=== PATIENT | female | born 1980 | race Caucasian/White ===

== ENCOUNTER 2017-05-07 12:14 | Inpatient (IN) ==
[2017-05-07] MEDS ORDERED: *HR* HYDROmorphone (PF) 1 MG/ML SYRINGE IVP ONE ×2 (16:21→18:09)
[2017-05-07] MEDS ORDERED: Ondansetron 4 MG/2 ML VIAL IVP ONE (18:09)
[2017-05-07] MEDS ORDERED: Naloxone 0.4 MG/ML INJ IVP PRN (19:37)
[2017-05-07] MEDS ORDERED: Acetaminophen 325 MG TABLET PO PRN (19:37)
[2017-05-07] MEDS ORDERED: MethylPREDNISolone 40 MG/ML VIAL IVP SCH (20:00)
[2017-05-07] MEDS: *HR* Promethazine 25 MG/ML VIAL IVP PRN (20:23)
[2017-05-07] MEDS: *HR* HYDROmorphone (PF) 1 MG/ML SYRINGE IVP PRN (20:23)
--- NOTE | 2017-05-07 21:20 | Internal Med History&Physical ---
Date of Encounter: 05/07/17 Time of Encounter: 08:00 Assessment and Plan (1) Acute Crohn's disease Current visit: Yes Status: Acute Will admit the pt into Med Surg Reviewed her hospital records from [facility] Reviewed CT of Abd from 04/30/2017 showed mild diffuse colitis, and 3mm renal calculi - left side Reviewed U/S of Kidney from 05/05/17 showed 5mm non obstruction renal calculi in mid left kidney without evidence of hydronephrosis Will cont IV Steroids Solumedrol 40mg Q12hr Clear liquid diet Consulted GI for further eval No signs of infection - will hold abx for now Na: 143, K +-3.6, BUN/Cr; 9/0.49 WBC: 12.5 Supposedly pt has to f/u with surgeon Dr. Saleem too.. will consult him in AM Qualifiers: Qualified Code(s): K50.90 - Crohn's disease, unspecified, without complications (2) Intractable nausea and vomiting Current visit: Yes Status: Acute Due to abdominal pain and Left flank pain with renal calculi cont supportive care she had X ray of abdomen series - non obstructive She was given TPN at [facility].. since she does not have any bowel obstruction and she does not look very malnourished will hold on TPN for now.. started on clear liquid diet and advance as she tolerates started her on IVF Qualifiers: Qualified Code(s): R11.2 - Nausea with vomiting, unspecified (3) Renal calculus, left Current visit: Yes Status: Acute Cont IV analgesics Her urine cx - showed mixed urogenital amrit No need of abx will repeat another UA here Consulted Urology cont supportive care Internal Medicine - H&P: HPI Chief complaint: Abdominal pain, Left flank pain Admitted From: Hospital to Hospital Transfer Plans for Post Hospital Care: Home History of present illness: Ms. Dempsey is a 36 year old female with known PMH of Renal stones s/p ureter stent 15 yrs ago, Crohn's disease with frequent flare ups and treated with remicade before was admitted at [facility] with 5 days history of nausea / vomiting and abdominal pain, then severe left flank pain started 2 days prior to hospitalization. She had CT of abd done, which showed 3mm Left kidney stone, with no hydronephrosis, no pyelonephritis, also showed mild diffuse colitis. Pt was treated with IV Clindamycin and IV steroids. She was also give daily TPN since she was not able to tlerate PO intake due to intractable nausea. Pt states that due to her left flank , she is feeling more nauseated. She stated her lower abdominal pain seems to be ok now. Pt was transferred to our hospital here for further higher level of care. Pt is alert, awake and O x3, looks in moderate distress with pain. Still has nausea and vomitings. Past Med Surg Social Fam HX - Past Medical History Medical history: kidney stones, other Psychiatric history: depression - Past Surgical History Surgical History: appendectomy, cancer surgery, cholecystectomy, colectomy, ureteral stent - Social History Smoking Status: Former smoker Smokeless Tobacco Status: No Alcohol use: none Drug use: none - Family History Father Hx Family Cancer: Yes Internal Medicine - H&P: Meds Diphenoxylate/Atropine [Lomotil 2.5 mg/0.025 mg] 1 tab PO QID 02/14/16 [History] Potassium Chloride [K-Tab ER] 20 meq PO DAILY 02/14/16 [History] Promethazine [Phenergan] 25 mg PO Q6HR PRN 02/14/16 [History] Dicyclomine HCl [Bentyl] 20 mg PO QID 06/12/16 [History] 3 Allergy/AdvReac Type Severity Reaction Status Date / Time cephalexin [From Keflex] Allergy Rash Verified 03/04/17 13:01 ciprofloxacin [From Cipro] Allergy Rash Verified 03/04/17 13:01 droperidol Allergy "CLIMBING Verified 03/04/17 13:01 SHERMAN" ANXIETY TORE IV OUT WITH TORADOL infliximab [From Remicade] Allergy STOP Verified 03/04/17 13:01 BREATHING metoclopramide [From Reglan] Allergy Hives Verified 03/04/17 13:01 metronidazole [From Flagyl] Allergy Hives Verified 03/04/17 13:01 morphine Allergy IV SITE Verified 03/04/17 13:01 RED STREAK Penicillins Allergy Rash Verified 03/04/17 13:01 sulfamethoxazole Allergy Rash Verified 03/04/17 13:01 [From Bactrim] trimethoprim [From Bactrim] Allergy Rash Verified 03/04/17 13:01 haloperidol [From Haldol] AdvReac CATATONI Verified 03/04/17 13:01 ketorolac [From Toradol] AdvReac "CLIMBING Verified 03/04/17 13:01 SHERMAN" ANXIETY TORE IV OUT WITH DROPERIDOL meperidine [From Demerol] AdvReac Rash Verified 03/04/17 13:01 PPD black rubber mix AdvReac FALSE Verified 03/04/17 13:01 POSITIVE (DR NAVA ALLERGY) All Systems PM: A 10-system review of systems was performed and is negative for pertinent findings except as documented above in the HPI. Review of systems: All the systems are reviewed everything is benign except the systems and symptoms I mentioned in the history of present illness - Constitutional Vitals: Temp Pulse Resp BP Pulse Ox 98.7 F 69 16 114/68 98 05/07/17 19:55 05/07/17 19:55 05/07/17 19:55 05/07/17 19:55 05/07/17 19:55 General appearance: Present: mild distress, A&O X 3, answers questions appropriately - Head Head exam: Present: atraumatic, normal inspection - Respiratory Respiratory exam: Present: decreased breath sounds. Absent: rales, respiratory distress, rhonchi, wheezes - Cardiovascular Cardiovascular exam: Present: RRR, +S1, +S2. Absent: systolic murmur - GI/Abdominal GI/Abdominal exam: Present: hypoactive bowel sounds, soft, tenderness (lower abdomen). Absent: rebound, rigid - Extremities Exam Extremities exam: Absent: calf tenderness, pedal edema, tenderness - Back Exam Back exam: Present: CVA tenderness (L). Absent: CVA tenderness (R), paraspinal tenderness, vertebral tenderness - Neurological Exam Neurological exam: Present: alert, oriented X3 - Psychiatric Psychiatric exam: Present: normal affect, normal mood
[2017-05-07] MEDS: MethylPREDNISolone 40 MG/ML VIAL IVP SCH (21:34)
[2017-05-07] MEDS: D5% in 0.45% NACL 1,000 ML IVC SCH (21:41)
[2017-05-08] MEDS: Ondansetron ODT 4 MG TAB.RAPDIS SL PRN ×2 (00:35→09:24)
[2017-05-08] MEDS: *HR* HYDROmorphone (PF) 1 MG/ML SYRINGE IVP PRN ×9 (00:35→22:47)
[2017-05-08] MEDS: D5% in 0.45% NACL 1,000 ML IVC SCH ×3 (04:45→20:01)
[2017-05-08] MEDS: *HR* Promethazine 25 MG/ML VIAL IVP PRN ×3 (04:46→20:34)
[2017-05-08 05:24] LABS: Basophils % 0.1 %; Hematocrit 32.5 % (35.3-44.9); Hemoglobin 10.6 g/dL (11.5-15.4); Immature Granulocytes % 1.5 % (0-4); Lymphocytes # 1.4 K/mcL (0.6-4.6); Lymphocytes % 8.1 %; Mean Corpuscular HGB Conc 32.6 g/dL (31.6-35.5); Mean Corpuscular Hemoglobin 29.7 pg (28.0-33.3); Mean Platelet Volume 9.5 fL (9.4-12.4); Monocytes # 0.7 K/mcL (0.0-1.3); Monocytes % 3.9 %; Neutrophils # 15.2 K/mcL (1.6-8.9); Platelet Count 337 K/mcL (140-400); Red Blood Count 3.57 M/mcL (3.82-4.97); Segmented Neutrophils % 86.4 %
[2017-05-08 05:31] LABS: Alanine Aminotransferase 40 Units/L (0-55); Albumin/Globulin Ratio 1.3 (1.1-2.2); Alkaline Phosphatase 69 Units/L (38-126); Aspartate Amino Transferase 9 Units/L (5-34); BUN/Creatinine Ratio 18 (6-26); Bilirubin,Total 0.3 mg/dL (0.2-1.2); Blood Urea Nitrogen 11 mg/dL (7-20); Calcium 8.1 mg/dL (8.6-10.8); Carbon Dioxide 27 mEq/L (19-29); Chloride 106 mEq/L (98-109); Globulin 2.4 g/dL (2.4-3.5); Glucose 111 mg/dL (70-99); Magnesium 1.8 mg/dL (1.6-2.6); Osmolality,Calculated 290 (280-300); Phosphorous 3.9 mg/dL (2.3-4.7); Potassium 3.5 mEq/L (3.5-4.5); Sodium 140 mEq/L (136-145); Total Protein 5.4 g/dL (6.0-8.3); eGFR For African Americans > 60 (> 60); eGFR For Non-African Americans > 60 (> 60)
[2017-05-08] MEDS: Pantoprazole 40 MG VIAL IVP SCH (08:15)
[2017-05-08] MEDS: MethylPREDNISolone 40 MG/ML VIAL IVP SCH ×2 (08:16→20:02)
[2017-05-08] MEDS ORDERED: Ondansetron 4 MG/2 ML VIAL IVP PRN (10:25)
--- NOTE | 2017-05-08 10:28 | Internal Med Progress Note ---
<RickedisonAnastasiya - Last Filed: 05/08/17 13:37> Date of Encounter: 05/08/17 Time of Encounter: 10:26 - Assessment and plan (1) Acute Crohn's disease Current Visit: Yes Status: Acute Assessment and plan: Patient with acute flare of her Crohn's colitis. CT scan showing colitis and 3 mm left kidney stone which is non-obstructing with no hydronephrosis. -Continue Solu-Medrol steroids, Protonix, and anti-emetics. -GI consult-they recommend continued treatment with steroids, Protonix, and antibiotics. Qualifiers: Digestive disease complication type: unspecified complication Qualified Code(s): K50.919 - Crohn's disease, unspecified, with unspecified complications (2) Intractable nausea and vomiting Current Visit: Yes Status: Acute Assessment and plan: Continue supportive care. X-ray of abdomen shows non-obstructive renal calculus. Patient received TPN at [facility]. This was discontinued on her admission here. -Liquid diet and advance as tolerated. -IV fluids -Anti-emetics Qualifiers: Vomiting type: unspecified Qualified Code(s): R11.2 - Nausea with vomiting , unspecified (3) Renal calculus, left Current Visit: Yes Status: Acute Assessment and plan: -IV analgesia. No indication for antibiotics. -Consult to urology. - Subjective Interval history: Mrs. Haddad is a 36-year-old female past medical history of Crohn's and renal stones status post ureteral stent 15 years ago. Patient transferred here from [facility] after a 5 day stay with nausea vomiting, abdominal pain, and then development of left flank pain. She was being treated for acute Crohn's flare and a renal calculi which is non-obstructing. This morning patient appears in moderate distress. She states her pain is severe. She is holding her left flank region. She states she is having nausea, vomiting, and diarrhea which is frothy and filled with mucus. She states she is having hematuria, however denies dysuria. She denies any chest pain, shortness of breath, diaphoresis, dizziness, lightheadedness, or headache. She denies any fevers. - Constitutional Vitals: Temp Pulse Resp BP Pulse Ox 98 F 67 14 132/79 98 05/08/17 07:09 05/08/17 07:09 05/08/17 07:09 05/08/17 07:09 05/08/17 07:09 General appearance: Present: mild distress, A&O X 3, answers questions appropriately - Respiratory Respiratory exam: Present: CTAB. Absent: accessory muscle use, rales, rhonchi, wheezes - Cardiovascular Cardiovascular exam: Present: RRR, +S1, +S2. Absent: diastolic murmur, gallop, rubs, systolic murmur - GI/Abdominal GI/Abdominal exam: Present: normal bowel sounds, soft, tenderness (Right upper quadrant moderate pain extending diagonally across her abdomen through her epigastric region and into her left lower quadrant.), no peritoneal signs. Absent: distended, firm, guarding - Extremities Exam Extremities exam: Present: warm, radial pulses palpable and symmetrical. Absent : calf tenderness, cyanotic, pedal edema Internal Medicine: Result - Labs CBC & Chem 7: 05/08/17 04:59 05/08/17 04:59 Labs: Short CBC 05/08/17 Range/Units 04:59 WBC 17.6 H (4.3-11.1) K/mcL Hgb 10.6 L (11.5-15.4) g/dL Hct 32.5 L (35.3-44.9) % Plt Count 337 (140-400) K/mcL Neutrophils # 15.2 H (1.6-8.9) K/mcL BMP 05/08/17 04:59 Sodium 140 Potassium 3.5 Chloride 106 Carbon Dioxide 27 BUN 11 Creatinine 0.60 Glucose 111 H Calcium 8.1 L Liver Function 05/08/17 Range/Units 04:59 Total Bilirubin 0.3 (0.2-1.2) mg/dL AST 9 (5-34) Units/L ALT 40 (0-55) Units/L Alkaline Phosphatase 69 (38-126) Units/L Albumin 3.0 L (3.5-5.0) g/dL Consult Discharge Plan - Plan Referrals: Bj Garcia MD [Primary Care Provider] - <Emilio [facility] - Last Filed: 05/08/17 14:24> Date of Encounter: 05/08/17 - Constitutional Vitals: Temp Pulse Resp BP Pulse Ox 98.5 F 87 15 134/87 99 05/08/17 12:33 05/08/17 12:33 05/08/17 12:33 05/08/17 12:33 05/08/17 12:33 Internal Medicine: Result - Labs CBC & Chem 7: 05/08/17 04:59 05/08/17 04:59 Labs: Short CBC 05/08/17 Range/Units 04:59 WBC 17.6 H (4.3-11.1) K/mcL Hgb 10.6 L (11.5-15.4) g/dL Hct 32.5 L (35.3-44.9) % Plt Count 337 (140-400) K/mcL Neutrophils # 15.2 H (1.6-8.9) K/mcL BMP 05/08/17 04:59 Sodium 140 Potassium 3.5 Chloride 106 Carbon Dioxide 27 BUN 11 Creatinine 0.60 Glucose 111 H Calcium 8.1 L Liver Function 05/08/17 Range/Units 04:59 Total Bilirubin 0.3 (0.2-1.2) mg/dL AST 9 (5-34) Units/L ALT 40 (0-55) Units/L Alkaline Phosphatase 69 (38-126) Units/L Albumin 3.0 L (3.5-5.0) g/dL - Attending Attestation I have independently seen and examined this patient on 05/08/2017 and discussed plan of care with the patient, and the resident physician 36 F admitted from another hospital following Crohn's disease flare, L flank pain and intractable nausea and vomiting Patient continued to complain of L flank pain at referral hospital and her work up from there showed a non-obstructing stone, with no hydropnephrosis, patient' s chem is WNL. She endorsed some hematuria which has not been witnessed She continues to have nausea and vomiting, but states she was able to hold her dinner from last night down She also continues to require and request dilaudid every 2 hrs GI and Urology evaluations are pending Physical exam: VSS, Young female in no form of distress at time of review. HEENT : Unremarkable. MOist oral mucosa. Chest with Left port. CTAB. HS S1, S2 only, no m/g/r. Abdomen is soft and not tender. no CVA tenderness when patient is distracted. No pedal edema A/P #Crohns flare: Continue steroids, antiemetics, received Clindamycin from referral hospital, no clear indication for any antibiotics at this time, follow GI eval. #Leukocytosis possibly from steroids #L flank pain; Possible colic from renal stone. eval is pending, continue antiemetics and pain control No indication for TPN at this time, patient does not have bowel obstruction,if at all she has malnutrition, its mild and I believe we should attempt oral intake initially. She is high risk due to continuous use of IV opiates. Rest of details as in resident physician's documentation
[2017-05-08] MEDS ORDERED: Potassium Chloride 40 MEQ, Lidocaine 1% 2 ML in D5% in Water 500 ML IVPB ONE (10:59)
--- NOTE | 2017-05-08 13:11 | Gastroenterology Consult Note ---
<Yanet Landry - Last Filed: 05/08/17 12:56> Date of Encounter: 05/08/17 Time of Encounter: 11:00 - Assessment and plan (1) Acute Crohn's disease Current Visit: Yes Status: Acute Assessment and plan: Pt is a 36 year old female who has Crohn's disease. She has been treated with biologics in the past. She presents with acute flare. She has been started on steroids, protonix and antiemetics. Qualifiers: Qualified Code(s): K50.90 - Crohn's disease, unspecified, without complications - Time Spent With Patient Total time spent is greater than 50% in coordination of care (as documented) at patient's floor/unit and/or counseling patient: GI History of Present Illness - Data of Consult Patient: new to practice Consult date: 05/08/17 Requesting Physician: Emilio [facility] MD - Consult Narrative Reason for consult: Crohn's disease History of present illness: Ms. Dempsey is a 36 year old female who presented with abdominal pain nausea and vomiting. She has a pmhx kidney stones, depression and Chron's disease. She was recently hospitalized for nausea/vomiting/ abdominal pain for 6 days at [facility] for 6 days before being transferred here. She was treated with antibiotics, steroids, and TPN there. She reports she is on protonix and steroids prn at home. She was diagnosed with Crohns in 2003. She was on remicade for 2 years but had anaphylactic reaction. She has also been tried on humira and Cimzia which provided some relief for a short time then symptoms worsened again. She has also been on asacol and sulfasalazine with minimal relief in the past. She has been followed by Dr Doherty and Dr Saleem in the past. She had colon resection 8 years ago. She reports increased nausea and vomiting/ abdominal pain and diarrhea for the past week. Stool is watery, bile colored with streaks of blood and mucus. She has crampy abdominal pain, low grade fever and chills. CT abdomen showed 3 mm left kidney stone and colitis. Labs WBC 17.6, Hgb 10.6, albumin 3.0. Colonoscopy: 12/18 Chas EGD: 02/17 patchy gastritis duodenitis, Capsule endoscopy 02/17 incomplete (did not leave stomach) gastritis NSAIDS: denies ASA: denies Anticougulants: none Past Med Surg Social Fam HX - Past Medical History Medical history: kidney stones, other Psychiatric history: depression - Past Surgical History Surgical History: appendectomy, cancer surgery, cholecystectomy, colectomy, ureteral stent - Social History Smoking Status: Former smoker Smokeless Tobacco Status: No Alcohol use: none Drug use: none - Family History Father Hx Family Cancer: Yes Review of Systems: GI: as per [place] [facility]: fever and chills EYES: denies yellow discoloration ENT: denies pain with swallowing or difficulty swallowing CARDIO: denies chest pain, palpitations RESP: No Shortness of breath with exertion : denies change in color of urine NEURO: denies any weakness HEME: Denies any bruising MS: chronic joint pain, and back pain. DERM: denies rash or itching PSYCH: Denies history of anxiety or depression - Constitutional Vitals: Temp Pulse Resp BP Pulse Ox 98.5 F 87 15 134/87 99 05/08/17 12:33 05/08/17 12:33 05/08/17 12:33 05/08/17 12:33 05/08/17 12:33 Exam: CONSTITUTIONAL:~alert, no acute distress.~HEAD:~normocephalic.~EYES:~no jaundice.~NECK:~no obvious swelling.~HEART:~regular rate and rhythm, no murmurs. ~LUNGS:~bilateral good air entry.~ABDOMEN:~non distended, soft, tender, no masses palpable, no organomegaly, abdominal scars well healed.~RECTAL EXAM:~ Deferred.~EXTREMITIES:~no clubbing, cyanosis or edema.~SKIN:~no stigmata of chronic liver disease.~NEUROLOGIC:~no obvious focal defect.~~~~ Results - Labs CBC & Chem 7: 05/08/17 04:59 05/08/17 04:59 Labs: Last Result Calcium 8.1 mg/dL (8.6-10.8) L 05/08/17 04:59 Entire Visit Hgb 10.6 g/dL (11.5-15.4) L 05/08/17 04:59 Hct 32.5 % (35.3-44.9) L 05/08/17 04:59 Total Bilirubin 0.3 mg/dL (0.2-1.2) 05/08/17 04:59 AST 9 Units/L (5-34) 05/08/17 04:59 ALT 40 Units/L (0-55) 05/08/17 04:59 Consult Discharge Plan - Plan Referrals: Bj Garcia MD [Primary Care Provider] - 05/19/17 1:00 pm <Yamila Banegas - Last Filed: 05/08/17 20:36> Date of Encounter: 05/08/17 Time of Encounter: 17:30 - Time Spent With Patient Total time spent is greater than 50% in coordination of care (as documented) at patient's floor/unit and/or counseling patient: GI History of Present Illness - Data of Consult Requesting Physician: Emilio [facility] MD - Consult Narrative History of present illness: Ms. Dempsey is a 36 year old female - Constitutional Vitals: Temp Pulse Resp BP Pulse Ox 98.8 F 79 15 129/80 98 05/08/17 16:36 05/08/17 16:36 05/08/17 16:36 05/08/17 16:36 05/08/17 16:36 Results - Labs CBC & Chem 7: 05/08/17 04:59 05/08/17 04:59 Labs: Last Result Calcium 8.1 mg/dL (8.6-10.8) L 05/08/17 04:59 Entire Visit Hgb 10.6 g/dL (11.5-15.4) L 05/08/17 04:59 Hct 32.5 % (35.3-44.9) L 05/08/17 04:59 Total Bilirubin 0.3 mg/dL (0.2-1.2) 05/08/17 04:59 AST 9 Units/L (5-34) 05/08/17 04:59 ALT 40 Units/L (0-55) 05/08/17 04:59 - Attending Attestation I examined this patient and my medical decision-making was reviewed with the Resident Physician. I agree with the documented findings, disposition and treatment plan as described except to the extent set forth below. Pt with Hx of Crohns now with ?? flare. CT reviewed, donot seen that pt has much active disease. Does has Hx of anastmotic stricture and symptoms can be due to that but no bowel obstruction. Rec; Colon in am and if no active disease and only only aanstomotic stricture then will need resection of that and if active disease then will consider entyvio as out pt as failed out TNF biologics
[2017-05-08] MEDS ORDERED: Aminoglycoside Consult 1 EACH MC ONE (13:29)
[2017-05-08] MEDS: Ondansetron 4 MG/2 ML VIAL IVP PRN ×2 (15:59→22:46)
--- NOTE | 2017-05-08 18:48 | Urology - Consult Note ---
Date of Encounter: 05/08/17 Time of Encounter: 18:45 - Assessment and Plan (1) Pyelonephritis Current Visit: Yes Status: Acute Assessment and plan: I believe the patient has acute pyelonephritis. We will initially start gentamicin. Recommend adjustment per primary team. (2) Renal calculus, left Current Visit: Yes Status: Acute Assessment and plan: No intervention to the stone needed at this time. The stone is nonobstructing. Patient did have subsequent renal ultrasound which confirmed no hydronephrosis. Urology CN:HPI Consult date: 05/08/17 Reason for consult Urology: Other (left flank pain) Requesting physician: Serg Teran History of present illness: Lorri is a 36-year-old female with a history of Crohn's disease. Patient states that she presented to outside hospital emergency Department approximately 1 week ago with severe left-sided flank pain. She does CT scan done which was personally reviewed which showed a 5 mm left renal stone without any obstruction. Patient did have a nitrite positive urinalysis at that visit. She states that she was subsequently placed on antibiotics and her WBC count did improve on review of her records. He did slowly start to rise. She denies any fevers. She still has persistent off-and-on left-sided flank discomfort 4- 5 out of 10 sharp in nature with no radiation. Past Med Surg Social Fam HX - Past Medical History Medical history: kidney stones, other Psychiatric history: depression - Past Surgical History Surgical History: appendectomy, cancer surgery, cholecystectomy, colectomy, ureteral stent - Social History Smoking Status: Former smoker Smokeless Tobacco Status: No Alcohol use: none Drug use: none - Family History Father Hx Family Cancer: Yes Medications and Allergies Promethazine [Phenergan] 25 mg PO Q6HR PRN 02/14/16 [History] Dicyclomine HCl [Bentyl] 20 mg PO QID 06/12/16 [History] Melatonin 10 mg PO HS PRN 05/08/17 [History] Ondansetron HCl [Zofran] 4 mg PO Q8H PRN 05/08/17 [History] 3 Allergy/AdvReac Type Severity Reaction Status Date / Time cephalexin [From Keflex] Allergy Rash Verified 03/04/17 13:01 ciprofloxacin [From Cipro] Allergy Rash Verified 03/04/17 13:01 droperidol Allergy "CLIMBING Verified 03/04/17 13:01 SHERMAN" ANXIETY TORE IV OUT WITH TORADOL infliximab [From Remicade] Allergy STOP Verified 03/04/17 13:01 BREATHING metoclopramide [From Reglan] Allergy Hives Verified 03/04/17 13:01 metronidazole [From Flagyl] Allergy Hives Verified 03/04/17 13:01 morphine Allergy IV SITE Verified 03/04/17 13:01 RED STREAK Penicillins Allergy Rash Verified 03/04/17 13:01 sulfamethoxazole Allergy Rash Verified 03/04/17 13:01 [From Bactrim] trimethoprim [From Bactrim] Allergy Rash Verified 03/04/17 13:01 haloperidol [From Haldol] AdvReac CATATONI Verified 03/04/17 13:01 ketorolac [From Toradol] AdvReac "CLIMBING Verified 03/04/17 13:01 SHERMAN" ANXIETY TORE IV OUT WITH DROPERIDOL meperidine [From Demerol] AdvReac Rash Verified 03/04/17 13:01 PPD black rubber mix AdvReac FALSE Verified 03/04/17 13:01 POSITIVE (DR NAVA ALLERGY) Review of Systems - Constitutional no chills - EENT Nose, mouth and throat: no dizziness - Cardiovascular no chest pain - Respiratory no cough - Gastrointestinal abdominal pain - Musculoskeletal as per HPI, back pain - Integumentary no erythema - Neurological no confusion Exam Initial Vital Signs Temp Pulse Resp BP Pulse Ox 99.0 F 97 16 128/81 98 05/07/17 16:19 05/07/17 16:19 05/07/17 16:19 05/07/17 16:19 05/07/17 16:19 - General physical appearance Present: well developed - Eyes Present: PERRL - ENT Present: normal nares - Neck Present: no masses - Respiratory Present: normal respiratory effort - Cardiovascular Cardiovascular exam IM: RRR - Abdomen Abdomen: Present: soft - Integumentary Present: no rash - Neurologic Present: normal coordination Urology Results - Labs 05/08/17 04:59 05/08/17 04:59 Abnormal lab results WBC 17.6 K/mcL (4.3-11.1) H 05/08/17 04:59 RBC 3.57 M/mcL (3.82-4.97) L 05/08/17 04:59 Hgb 10.6 g/dL (11.5-15.4) L 05/08/17 04:59 Hct 32.5 % (35.3-44.9) L 05/08/17 04:59 Neutrophils # 15.2 K/mcL (1.6-8.9) H 05/08/17 04:59 Glucose 111 mg/dL (70-99) H 05/08/17 04:59 POC Glucose 111 (58-89) H 05/08/17 12:21 Calcium 8.1 mg/dL (8.6-10.8) L 05/08/17 04:59 Serum Total Protein 5.4 g/dL (6.0-8.3) L 05/08/17 04:59 Albumin 3.0 g/dL (3.5-5.0) L 05/08/17 04:59 Diabetes panel 05/08/17 Range/Units 04:59 Sodium 140 (136-145) mEq/L Potassium 3.5 (3.5-4.5) mEq/L Chloride 106 (98-109) mEq/L Carbon Dioxide 27 (19-29) mEq/L BUN 11 (7-20) mg/dL Creatinine 0.60 (0.57-1.11) mg/dL Glucose 111 H (70-99) mg/dL Calcium 8.1 L (8.6-10.8) mg/dL AST 9 (5-34) Units/L ALT 40 (0-55) Units/L Alkaline Phosphatase 69 (38-126) Units/L Albumin 3.0 L (3.5-5.0) g/dL Calcium panel 05/08/17 Range/Units 04:59 Calcium 8.1 L (8.6-10.8) mg/dL Phosphorus 3.9 (2.3-4.7) mg/dL Albumin 3.0 L (3.5-5.0) g/dL Pituitary panel 05/08/17 Range/Units 04:59 Sodium 140 (136-145) mEq/L Potassium 3.5 (3.5-4.5) mEq/L Chloride 106 (98-109) mEq/L Carbon Dioxide 27 (19-29) mEq/L BUN 11 (7-20) mg/dL Creatinine 0.60 (0.57-1.11) mg/dL Glucose 111 H (70-99) mg/dL Calcium 8.1 L (8.6-10.8) mg/dL Adrenal panel 05/08/17 Range/Units 04:59 Sodium 140 (136-145) mEq/L Potassium 3.5 (3.5-4.5) mEq/L Chloride 106 (98-109) mEq/L Carbon Dioxide 27 (19-29) mEq/L BUN 11 (7-20) mg/dL Creatinine 0.60 (0.57-1.11) mg/dL Glucose 111 H (70-99) mg/dL Calcium 8.1 L (8.6-10.8) mg/dL Total Bilirubin 0.3 (0.2-1.2) mg/dL AST 9 (5-34) Units/L ALT 40 (0-55) Units/L Alkaline Phosphatase 69 (38-126) Units/L Albumin 3.0 L (3.5-5.0) g/dL All other labs normal. - Imaging CT scan - abdomen: image reviewed CT scan - pelvis: image reviewed Consult Discharge Plan - Plan Referrals: Bj Garcia MD [Primary Care Provider] - 05/19/17 1:00 pm
[2017-05-08] MEDS: Gentamicin 60 MG in 0.9 % Sodium Chloride 100 ML IVPB SCH (21:37)
[2017-05-09] MEDS: *HR* HYDROmorphone (PF) 1 MG/ML SYRINGE IVP PRN ×8 (01:00→20:30)
[2017-05-09] MEDS: *HR* Promethazine 25 MG/ML VIAL IVP PRN ×3 (03:11→20:23)
[2017-05-09] MEDS: Gentamicin 60 MG in 0.9 % Sodium Chloride 100 ML IVPB SCH (05:02)
[2017-05-09] MEDS: Ondansetron 4 MG/2 ML VIAL IVP PRN ×2 (05:03→12:51)
[2017-05-09] MEDS: D5% in 0.45% NACL 1,000 ML IVC SCH ×2 (05:57→15:13)
[2017-05-09] MEDS: Pantoprazole 40 MG VIAL IVP SCH (07:57)
[2017-05-09] MEDS: MethylPREDNISolone 40 MG/ML VIAL IVP SCH (07:57)
[2017-05-09 08:52] LABS: Bilirubin,Urine Negative (Negative); Blood,Urine Small (Negative); Clarity,Urine Clear (Clear); Color,Urine Yellow (Yellow); Glucose,Urine (UA) Normal (Normal); Ketones,Urine Negative (Negative); Leukocyte Esterase,Urine Negative (Negative); Nitrite,Urine Negative (Negative); PH,Urine 6.5 pH Units (5.0-8.0); Protein,Urine Negative (Neg-Trace); Specific Gravity,Urine 1.011 (1.010-1.025); Urobilinogen,Urine Normal (Normal)
[2017-05-09 08:55] LABS: Bacteria,Urine None Seen per hpf (None-Few); Hyaline Casts,Urine None Seen per lpf (None-Few); RBC,Urine 0-3 per hpf (0-3); Squamous Epithelial Cell,Urine Many per lpf (None-Few); WBC,Urine 0-3 per hpf (0-3)
[2017-05-09 09:46] LABS: Basophils % 0.1 %; Eosinophils % 0.1 %; Hematocrit 34.6 % (35.3-44.9); Hemoglobin 11.3 g/dL (11.5-15.4); Immature Granulocytes % 1.3 % (0-4); Immature Platelets 5.6 % (1.1-6.1); Lymphocytes # 1.8 K/mcL (0.6-4.6); Lymphocytes % 9.7 %; Mean Corpuscular HGB Conc 32.7 g/dL (31.6-35.5); Mean Corpuscular Volume 91.8 fL (83.0-100.0); Mean Platelet Volume 10.3 fL (9.4-12.4); Monocytes # 0.8 K/mcL (0.0-1.3); Monocytes % 4.4 %; Neutrophils # 15.9 K/mcL (1.6-8.9); Platelet Count 317 K/mcL (140-400); Red Blood Count 3.77 M/mcL (3.82-4.97); Red Cell Distribution Width 14.4 % (11.5-14.5); Segmented Neutrophils % 84.4 %
[2017-05-09 10:02] LABS: Alanine Aminotransferase 36 Units/L (0-55); Albumin 3.1 g/dL (3.5-5.0); Albumin/Globulin Ratio 1.2 (1.1-2.2); Alkaline Phosphatase 68 Units/L (38-126); Aspartate Amino Transferase 10 Units/L (5-34); BUN/Creatinine Ratio 12 (6-26); Bilirubin,Total 0.5 mg/dL (0.2-1.2); Blood Urea Nitrogen 8 mg/dL (7-20); Calcium 8.5 mg/dL (8.6-10.8); Carbon Dioxide 20 mEq/L (19-29); Chloride 109 mEq/L (98-109); Globulin 2.6 g/dL (2.4-3.5); Glucose 95 mg/dL (70-99); Osmolality,Calculated 290 (280-300); Sodium 141 mEq/L (136-145); Total Protein 5.7 g/dL (6.0-8.3); eGFR For African Americans > 60 (> 60); eGFR For Non-African Americans > 60 (> 60)
--- NOTE | 2017-05-09 10:23 | Internal Med Progress Note ---
<RicksaleemAnastasiya duron - Last Filed: 05/09/17 14:07> Date of Encounter: 05/09/17 Time of Encounter: 10:23 - Assessment and plan (1) Pyelonephritis Current Visit: Yes Status: Acute Assessment and plan: Patient with left-sided flank pain. Per urology they believe the patient has acute pyelonephritis as she had nitrates in her urine at [facility]. -Follow-up retroperitoneal ultrasound to rule out pyelonephritis. -Patient received 2 doses of gentamicin. -Patient's urinalysis today shows no evidence of bladder cystitis. We have discontinued the gentamicin. Upon extensive review of patient's paper medical chart from [facility], patient was being treated with clindamycin for a UTI. Patient had 5 days total course of antibiotics including the gentamicin she received here. The risks of nephrotoxicity and ototoxicity from gentamicin outweigh the potential benefits. (2) Acute Crohn's disease Current Visit: Yes Status: Acute Assessment and plan: Patient with acute flare of her Crohn's colitis. CT scan showing colitis and 3 mm left kidney stone which is non-obstructing with no hydronephrosis. -Continue Solu-Medrol steroids, Protonix, and anti-emetics per GI medications. -Patient scheduled for colonoscopy today. Qualifiers: Digestive disease complication type: unspecified complication Qualified Code(s): K50.919 - Crohn's disease, unspecified, with unspecified complications (3) Intractable nausea and vomiting Current Visit: Yes Status: Acute Assessment and plan: Continue supportive care. X-ray of abdomen shows non-obstructive renal calculus. Patient received TPN at [facility]. This was discontinued on her admission here. -Liquid diet and advance as tolerated. -IV fluids -Anti-emetics Qualifiers: Vomiting type: unspecified Qualified Code(s): R11.2 - Nausea with vomiting , unspecified (4) Renal calculus, left Current Visit: Yes Status: Acute Assessment and plan: -IV analgesia. No indication for antibiotics. -Nonobstructing with no hydronephrosis. -No interventions indicated at this time. - Subjective Interval history: Mrs. Haddad is a 36-year-old female past medical history of Crohn's and renal stones status post ureteral stent 15 years ago. Patient transferred here from [facility] after a 5 day stay with nausea vomiting, abdominal pain, and then development of left flank pain. She was being treated for acute Crohn's flare and a renal calculi which is non-obstructing. Mr. Haddad is resting comfortably this morning. She states she feels better from yesterday. She does still complain of some left sided flank pain. She is also having diffuse abdominal pain, as well as nausea and vomiting. She states she is having nausea, vomiting, and diarrhea which is frothy and filled with mucus. She states she is having hematuria, however denies dysuria. She denies any chest pain, shortness of breath, diaphoresis, dizziness, lightheadedness, or headache. She denies any fevers. - Constitutional Vitals: Temp Pulse Resp BP Pulse Ox 97.8 F 64 14 116/73 97 05/09/17 06:42 05/09/17 06:42 05/09/17 06:42 05/09/17 06:42 05/09/17 06:42 General appearance: Present: A&O X 3, pleasant, answers questions appropriately - Respiratory Respiratory exam: Present: CTAB. Absent: accessory muscle use, rales, rhonchi, wheezes - Cardiovascular Cardiovascular exam: Present: RRR, +S1, +S2. Absent: diastolic murmur, gallop, rubs, systolic murmur Additional comments: Patient with a port. - GI/Abdominal GI/Abdominal exam: Present: normal bowel sounds, soft, tenderness (Diffusely mild tenderness to palpation), no peritoneal signs. Absent: distended Additional comments: No left-sided or right-sided CVA tenderness. - Extremities Exam Extremities exam: Present: warm, radial pulses palpable and symmetrical. Absent : calf tenderness, cyanotic, pedal edema Internal Medicine: Result - Labs CBC & Chem 7: 05/09/17 09:35 05/09/17 09:35 Labs: Urine 05/09/17 Range/Units 08:20 Urine Color Yellow (Yellow) Urine Clarity Clear (Clear) Urine pH 6.5 (5.0-8.0) pH Units Ur Specific [place] 1.011 (1.010-1.025) Urine Protein Negative (Neg-Trace) mg/dL Urine Glucose (UA) Normal (Normal) mg/dL Consult Discharge Plan - Plan Referrals: Bj Garcia MD [Primary Care Provider] - 05/19/17 1:00 pm <Emilio Peoples - Last Filed: 05/09/17 15:15> Date of Encounter: 05/09/17 - Constitutional Vitals: Temp Pulse Resp BP Pulse Ox 98.9 F 68 16 139/84 99 05/09/17 11:28 05/09/17 12:06 05/09/17 12:06 05/09/17 12:06 05/09/17 12:06 Internal Medicine: Result - Labs CBC & Chem 7: 05/09/17 09:35 05/09/17 09:35 Labs: Short CBC 05/09/17 Range/Units 09:35 WBC 18.8 H (4.3-11.1) K/mcL Hgb 11.3 L (11.5-15.4) g/dL Hct 34.6 L (35.3-44.9) % Plt Count 317 (140-400) K/mcL Neutrophils # 15.9 H (1.6-8.9) K/mcL BMP 05/09/17 09:35 Sodium 141 Potassium 4.0 Chloride 109 Carbon Dioxide 20 BUN 8 Creatinine 0.66 Glucose 95 Calcium 8.5 L Liver Function 05/09/17 Range/Units 09:35 Total Bilirubin 0.5 (0.2-1.2) mg/dL AST 10 (5-34) Units/L ALT 36 (0-55) Units/L Alkaline Phosphatase 68 (38-126) Units/L Albumin 3.1 L (3.5-5.0) g/dL Urine 05/09/17 Range/Units 08:20 Urine Color Yellow (Yellow) Urine Clarity Clear (Clear) Urine pH 6.5 (5.0-8.0) pH Units Ur Specific [place] 1.011 (1.010-1.025) Urine Protein Negative (Neg-Trace) mg/dL Urine Glucose (UA) Normal (Normal) mg/dL - Attending Attestation I have independently seen and examined this patient on 05/09/2017 and discussed plan of care with the patient, and the resident physician 36 F admitted from another hospital following Crohn's disease flare, L flank pain and intractable nausea and vomiting. Review of paper chart from referral hospital shows initial UA on 04/30 with Nitrites and LE, she received clindamycin for 5 days. She also has been on steroids since 04/30. She has been seen by the urologist who started her on gentamicin on suspicion of pyelonephritis, due to presence of UTI at referal hospital and L flank pain. Patient's urine culture at referral hospital was mixed amrit without any growth. A repeat UA done this morning is clean and did not require culture This morning, she does look significantly improved and denies any new complains , she had one episode of vomiting sometime in the manager personal. Physical exam: VSS, Young female in no form of distress at time of review. HEENT : Unremarkable. MOist oral mucosa. Chest with Left port. CTAB. HS S1, S2 only, no m/g/r. Abdomen is soft and not tender. no CVA tenderness when patient is distracted. No pedal edema Labs and Imaging reviewed: Leukocytosis, HB is stable , Chem is noral, hyperglycemia possibly from steroids, corrected calcium is normal, prealbumin is 31.0, albumin is 3.1. UA is clean. CRP and ESR are normal. A/P #Crohns flare: Resolving, patient's CRP and ESR are WNL. 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 Continue emetics, advance diet as tolerated. #Leukocytosis possibly from steroids, continue to monitor #L flank pain; Possible colic from renal stone. eval is appreciated, continue antiemetics and pain control #Malnutrition: Continue supplements, no indication for TPN at this time, Pre- albumin is normal and albumin is only sightly low, patient does not look malnourished. #Suspected Pyelonephritis: Unlikely. Patient did have hematuria in her initial UA, as well as positive nitrates and LE, she has an indwelling renal stone and nause/vomiting. Her Urine culture had no significant growth, repeat UA this morning is clean. The risks of toxicity of gentamicin outweigh the benefits at this time, patient is not septic, and is clinically improving. D/C gentamicin and repeat renal USS. Also, her CRP and ESR is normal, it is unlikely she has an active infection #Suspected drug seeking behaviour: Patient reports having continuous diarrhea that has not been witnessed by any staff since arrival, she also typically is able to consume most of her tray but always has a liquid filled vomitus bag and does not want any po opiates. We will begin to wean her off IV dilaudid. She is high risk due to continuous use of IV opiates. Rest of details as in resident physician's documentation
[2017-05-09] MEDS ORDERED: *HR* Midazolam HCl 5 MG/5 ML VIAL IVP ONE (10:48)
[2017-05-09] MEDS ORDERED: *HR* FentaNYL (PF) 100 MCG/2 ML VIAL ONE (10:49)
[2017-05-09] MEDS ORDERED: Simethicone 40 MG/0.6 ML MLS IR ONE (11:22)
--- NOTE | 2017-05-09 11:23 | Pre-Sedation Evaluation ---
Pre-sedation evaluation - Pre-sedation checklist Recent Vitals: Last Vital Signs Temp 99.0 F 05/09/17 10:45 Pulse 89 05/09/17 10:45 Resp 16 05/09/17 10:45 BP 127/82 05/09/17 10:45 Pulse Ox 98 05/09/17 10:45 ASA Classification *see protocol: CLASS III-Severe systemic disease Plan of Care: Pt appropriate candidate for procedure/moderate/conscious sedation , Risks/benefits of procedure/sedation discussed w/ patient/family
[2017-05-09] MEDS ORDERED: *HR* Promethazine 25 MG/ML VIAL ONE (11:33)
[2017-05-09] MEDS: *HR* FentaNYL (PF) 100 MCG/2 ML VIAL IVP PRN ×3 (11:35→11:42)
[2017-05-09] MEDS: *HR* Midazolam HCl 5 MG/5 ML VIAL IVP PRN ×3 (11:36→11:43)
[2017-05-09] MEDS ORDERED: *HR* Promethazine 25 MG/ML VIAL IVP ONE (11:39)
[2017-05-09 14:51] LABS: C-Reactive Protein < 1 mg/L (Less than 5)
[2017-05-09] MEDS ORDERED: *HR* HYDROmorphone (PF) 1 MG/ML SYRINGE IVP SCH (16:00)
[2017-05-09] MEDS: *HR* HYDROcodone/Acet 5/325 mg TABLET PO PRN (17:11)
[2017-05-10] MEDS: *HR* HYDROmorphone (PF) 1 MG/ML SYRINGE IVP PRN ×2 (01:42→06:14)
[2017-05-10] MEDS: Ondansetron 4 MG/2 ML VIAL IVP PRN ×2 (01:44→08:01)
[2017-05-10] MEDS: D5% in 0.45% NACL 1,000 ML IVC SCH (02:36)
[2017-05-10] MEDS: *HR* Promethazine 25 MG/ML VIAL IVP PRN ×2 (03:10→10:24)
[2017-05-10] MEDS: *HR* HYDROcodone/Acet 5/325 mg TABLET PO PRN ×3 (03:11→12:24)
[2017-05-10 04:11] LABS: Basophils % 0.1 %; Eosinophils % 0.3 %; Hematocrit 32.4 % (35.3-44.9); Hemoglobin 10.3 g/dL (11.5-15.4); Immature Granulocytes % 0.8 % (0-4); Lymphocytes # 3.5 K/mcL (0.6-4.6); Lymphocytes % 24.4 %; Mean Corpuscular HGB Conc 31.8 g/dL (31.6-35.5); Mean Corpuscular Hemoglobin 29.4 pg (28.0-33.3); Mean Corpuscular Volume 92.6 fL (83.0-100.0); Mean Platelet Volume 9.9 fL (9.4-12.4); Monocytes % 6.7 %; Neutrophils # 9.8 K/mcL (1.6-8.9); Platelet Count 274 K/mcL (140-400); Red Cell Distribution Width 14.4 % (11.5-14.5); Segmented Neutrophils % 67.7 %
[2017-05-10 04:44] LABS: Carbon Dioxide 25 mEq/L (19-29); Chloride 109 mEq/L (98-109); Glucose 91 mg/dL (70-99); Osmolality,Calculated 287 (280-300); Potassium 3.3 mEq/L (3.5-4.5); Sodium 140 mEq/L (136-145); eGFR For African Americans > 60 (> 60); eGFR For Non-African Americans > 60 (> 60)
[2017-05-10 05:34] LABS: BUN/Creatinine Ratio 8 (6-26)
[2017-05-10 05:35] LABS: Blood Urea Nitrogen 5 mg/dL (7-20)
[2017-05-10 07:36] VITALS: BP 143/82
[2017-05-10] MEDS: Pantoprazole 40 MG VIAL IVP SCH (08:01)
[2017-05-10] MEDS ORDERED: *HR* HYDROmorphone (PF) 1 MG/ML SYRINGE IVP PRN (08:24)
[2017-05-10] MEDS ORDERED: predniSONE 20 MG TABLET PO SCH (09:00)
--- NOTE | 2017-05-10 11:09 | Discharge Summary ---
<Anastasiya Hunt H - Last Filed: 05/10/17 12:19> Date of Encounter: 05/10/17 Time of Encounter: 11:04 - Discharge Diagnosis (1) Pyelonephritis Priority: Secondary Status: Ruled-out (2) Acute Crohn's disease Priority: Secondary Status: Ruled-out Qualifiers: Digestive disease complication type: unspecified complication Qualified Code(s): K50.919 - Crohn's disease, unspecified, with unspecified complications (3) Intractable nausea and vomiting Priority: Secondary Status: Acute Qualifiers: Vomiting type: unspecified Qualified Code(s): R11.2 - Nausea with vomiting , unspecified (4) Renal calculus, left Priority: Primary Status: Acute - Discharge Medications Prescriptions: Ondansetron ODT [Zofran ODT] 4 mg SL Q4HR PRN #30 tab.rapdis PRN Reason: Nausea OxyCODONE/APAP 5/325 [Percocet 5/325 MG] 1 each PO Q4HR PRN #12 tablet PRN Reason: Pain predniSONE [PredniSONE] See Taper PO DAILY #12 tablet Home Medications: Promethazine [Phenergan] 25 mg PO Q6HR PRN 02/14/16 [History] Dicyclomine HCl [Bentyl] 20 mg PO QID 06/12/16 [History] Melatonin 10 mg PO HS PRN 05/08/17 [History] Ondansetron HCl [Zofran] 4 mg PO Q8H PRN 05/08/17 [History] Ondansetron ODT [Zofran ODT] 4 mg SL Q4HR PRN #30 tab.rapdis 05/10/17 [Rx] OxyCODONE/APAP 5/325 [Percocet 5/325 MG] 1 each PO Q4HR PRN #12 tablet 05/10/17 [Rx] predniSONE [PredniSONE] See Taper PO DAILY #12 tablet 05/10/17 [Rx] Allergies/Adverse Reactions: 3 Allergy/AdvReac Type Severity Reaction Status Date / Time cephalexin [From Keflex] Allergy Rash Verified 03/04/17 13:01 ciprofloxacin [From Cipro] Allergy Rash Verified 03/04/17 13:01 droperidol Allergy "CLIMBING Verified 03/04/17 13:01 SHERMAN" ANXIETY TORE IV OUT WITH TORADOL infliximab [From Remicade] Allergy STOP Verified 03/04/17 13:01 BREATHING metoclopramide [From Reglan] Allergy Hives Verified 03/04/17 13:01 metronidazole [From Flagyl] Allergy Hives Verified 03/04/17 13:01 morphine Allergy IV SITE Verified 03/04/17 13:01 RED STREAK Penicillins Allergy Rash Verified 03/04/17 13:01 sulfamethoxazole Allergy Rash Verified 03/04/17 13:01 [From Bactrim] trimethoprim [From Bactrim] Allergy Rash Verified 03/04/17 13:01 haloperidol [From Haldol] AdvReac CATATONI Verified 03/04/17 13:01 ketorolac [From Toradol] AdvReac "CLIMBING Verified 03/04/17 13:01 SHERMAN" ANXIETY TORE IV OUT WITH DROPERIDOL meperidine [From Demerol] AdvReac Rash Verified 03/04/17 13:01 PPD black rubber mix AdvReac FALSE Verified 03/04/17 13:01 POSITIVE (DR NAVA ALLERGY) Procedures/tests Complete & Pending: Procedures Performed prior 72 hours Category Date Time Status Retroperitoneal Ultrasound - Complete [US Exams 05/09/17 18:00 Draft retroperitoneal comp] [US] Stat Date of admission: 05/07/17 15:29 Primary care physician: Bj Garcia MD Consults: 05/07/17 20:56 Consult to Urology [CONS] Routine Consulting Provider: U[facility] [place] Reason for Consult: Left renal stone Call Completed: Yes 05/07/17 21:01 Consult to Gastroenterology [CONS] Routine Consulting Provider: Gastroenterology [place] Reason for Consult: Acute crohn's flare up Call Completed: Yes - Patient Status Disposition: Home, Self-Care Condition: Good Functional capacity at discharge: independent ambulation Overall status at discharge: patient is progressing back to baseline - Discharge Instructions Instructions: Kidney Stones (DC) Follow Up With: Bj Garcia MD [Primary Care Provider] - 05/19/17 1:00 pm William Rose MD [Partnered Physician] - Yamila Banegas MD [Partnered Physician] - Additional Instructions: Please follow-up with your primary care provider in the next 1-2 weeks. Please follow up with urology with the information provided above for management of your kidney stone. They will be able to better manage this on an outpatient basis. Also please follow-up with Dr. Valverde regarding the results of your colonoscopy as well as your management of Crohn's enterocolitis. - Diet and Activity Activity: increase activity as tolerated Diet: advance to your usual diet Hospital course: Ms. Dempsey is a 36 year old female with past medical history of renal stones status post ureteral stent 15 years ago, Crohn's disease with frequent flareups and past treatment with Remicade before being discontinued secondary to allergic reaction, and depression. Ms. Haddad presented to the emergency department after leaving [facility] after 5 days. She presented with nausea, vomiting, diarrhea, and pain with severe left-sided flank pain. Patient had a CT of her abdomen which showed a 3 mm left kidney stone with no hydronephrosis, no pyelonephritis, and some mild diffuse colitis. Patient was treated with IV clindamycin and IV steroids. She is also given TPN and she was unable to tolerate by mouth intake. Patient was transferred to our hospital for further evaluation and care. GI was consult and recommended steroids, Protonix, anti-emetics, and discontinuation of TPN. Patients antibiotics were discontinued. Patient was scheduled for colonoscopy by GI. Colonoscopy appeared normal. Biopsies were taken which patient needs to follow- up. There was evidence of a right hemicolectomy and severe stenosis at the ileocolonic anastomoses. This was dilated. Urology was consulted and began treatment with gentamicin for suspected pyelonephritis. Patient had a renal retroperitoneal ultrasound which showed no abnormalities of the kidneys, ureters , or bladder. We discontinued the gentamicin after these results coupled with a clean urinalysis. Urinalysis from [facility] showed infection, and patient received a total of 5 days of antibiotic coverage for this. Patient was treated with IV pain medication, antiemetics, and fluids. As patient's workup was largely within normal limits, we began to titrate her off the IV pain medications, at which time she requested to be discharged home from the hospital. As we found patient to be in no active distress and were unable to find anything acutely wrong on workup, we decided to discharge her home after tolerating a regular diet. Patient expressed understanding of the plan and all questions were answered appropriately. We discharged the patient home with instructions to follow-up with GI regarding her colonic biopsy as well as urology for follow-up outpatient management of her kidney stone. Of note, [facility]AR[facility] report shows many different prescribers for narcotic pain medication. Her last prescription was in April. Patient was offered the flu shot. - Time Spent with Patient Total time spent providing and/or coordinating discharge services: Greater than 30 minutes (40 minutes) - Constitutional Vitals: Temp Pulse Resp BP Pulse Ox 97.9 F 64 18 143/82 99 05/10/17 07:34 05/10/17 07:34 05/10/17 07:34 05/10/17 07:34 05/10/17 07:34 General appearance: Present: A&O X 3, pleasant, answers questions appropriately - Respiratory Respiratory exam: Present: CTAB. Absent: accessory muscle use, rales, rhonchi, wheezes - Cardiovascular Cardiovascular exam: Present: RRR, +S1, +S2. Absent: diastolic murmur, gallop, rubs, systolic murmur Additional comments: Port in place. - GI/Abdominal GI/Abdominal exam: Present: normal bowel sounds, soft, no peritoneal signs. Absent: distended, tenderness - Extremities Exam Extremities exam: Present: warm, radial pulses palpable and symmetrical. Absent : calf tenderness, cyanotic, pedal edema <Emilio Peoples - Last Filed: 05/10/17 14:19> Date of Encounter: 05/10/17 Procedures/tests Complete & Pending: Procedures Performed prior 72 hours Category Date Time Status Retroperitoneal Ultrasound - Complete [US Exams 05/09/17 18:00 Draft retroperitoneal comp] [US] Stat Date of admission: 05/07/17 15:29 Primary care physician: Bj Garcia MD Consults: 05/07/17 20:56 Consult to Urology [CONS] Routine Consulting Provider: Urology [place] Reason for Consult: Left renal stone Call Completed: Yes 05/07/17 21:01 Consult to Gastroenterology [CONS] Routine Consulting Provider: Gastroenterology [place] Reason for Consult: Acute crohn's flare up Call Completed: Yes Hospital course: Ms. Dempsey is a 36 year old female - Time Spent with Patient Total time spent providing and/or coordinating discharge services: - Constitutional Vitals: Temp Pulse Resp BP Pulse Ox 97.9 F 64 18 143/82 99 05/10/17 07:34 05/10/17 07:34 05/10/17 07:34 05/10/17 07:34 05/10/17 07:34 - Attending Attestation I have independently seen and examined this patient on 05/10/2017 and discussed plan of care with the patient, and the resident physician 36 F admitted from another hospital following Crohn's disease flare, L flank pain and intractable nausea and vomiting. Review of paper chart from referral hospital shows initial UA on 04/30 with Nitrites and LE, she received clindamycin for 5 days. She also has been on steroids since 04/30. She was seen by the urologist 05/09/17 who started her on gentamicin on suspicion of pyelonephritis, due to presence of UTI at [facility] hospital and L flank pain. Patient's urine culture at referral hospital was mixed amrit without any growth. A repeat UA done this morning is clean and did not require culture. Renal USS is normal save for non-obstructing stone This morning, she does look significantly improved and is tolerating orally She denies new complains She actually asked to be discharged when informed of the plan to taper off her dilaudid. She states she has enough support at home and will like to go her son' s homecoming. She had reported some diarrhea earlier but stated it is at her baseline She was given a regular diet for lunch and tolerated it without any nausea or vomiting Physical exam: Unremarkable Labs and Imaging reviewed: Leukocytosis improving, HB is stable , Chem is normal , hyperglycemia possibly from steroids, corrected calcium is normal, prealbumin is 31.0, albumin is 3.1. UA is clean. CRP and ESR are normal. Renal USS noted. Colonoscopy noted Stable for discharge home on prednisone taper, percocet ([facility]ARSS shows multiple prescribers for tramadol and opiates, last prescription was 03/2017. for 10 pills by her PCP. ), SL ONdansetron Follow up with /GI/PCP Verbalized and repeated plan of care Rest of details as in resident physician's documentation
== END 2017-05-10 13:30 | disposition home or self-care (01) | DRG 247 ==
LOC: 3ANU 15:29
PROVIDERS: ADMIT Family Medicine; ATTEND Internal Medicine
PROC: ENDOCBD (2017-05-09 16:15)

== ENCOUNTER 2017-10-06 16:58 | Observation (INO) ==
[2017-10-06] MEDS ORDERED: Naloxone 0.4 MG/ML INJ IVP PRN (20:48)
[2017-10-06] MEDS ORDERED: Acetaminophen 325 MG TABLET PO PRN (20:48)
[2017-10-06] MEDS ORDERED: *HR* HYDROmorphone 2 MG/ML SYRINGE IVP PRN (20:52)
[2017-10-06] MEDS: 0.9 % Sodium Chloride 1,000 ML IVC SCH (21:23)
[2017-10-06] MEDS: Meropenem 1,000 MG in Water for inj. (sterile) 20 ML 10 ML IVP SCH (21:24)
[2017-10-06] MEDS: OXYCODONE Oral CONC 10 MG/0.5 ML ORAL.SYG SL PRN (21:25)
[2017-10-06] MEDS: Ondansetron 4 MG/2 ML VIAL IVP PRN (21:26)
--- NOTE | 2017-10-06 22:03 | Internal Med History&Physical ---
Date of Encounter: 10/06/17 Time of Encounter: 20:00 Assessment and Plan (1) Exacerbation of Crohn's disease Current visit: Yes Status: Acute Patient has acute exacerbation of chronic disease. Patient has similar problem before. - We will place patient on nothing by mouth, IV fluid - IV meropenem. Patient has multiple antibiotic allergy, which limited the antibiotic choice. - Solu Medrol 60 mg IV every 8 hours for Crohn's flare - Symptomatic treatment for abdominal pain, nausea. - Consult GI in a.m. Qualifiers: Digestive disease complication type: without complication Qualified Code(s) : K50.90 - Crohn's disease, unspecified, without complications (2) DVT prophylaxis Current visit: Yes Status: Acute Patient is young and ambulating. Low risk for DVT. Will hold anticoagulation Internal Medicine - H&P: HPI Chief complaint: Abdominal pain Admitted From: Intrahospital Transfer Plans for Post Hospital Care: Home History of present illness: Ms. Dempsey is a 36 year old female with history of chronic disease, previous C. difficile colitis, presented to [facility] for abdominal pain, nausea, vomiting, and bloody diarrhea. Patient also has low grade fever with temperature 99.9. Patient has elevated WBC to 19 K. In [facility], supine and upright abdominal x-ray has been done, result is unremarkable. C. difficile test negative. Patient was treated with Crohn's disease flare with steroid, antibiotic, and pain medications. Patient was transferred to our hospital because she follow our GI doctor Dr. Banegas. Past Med Surg Social Fam HX - Past Medical History Medical history: kidney stones, other Psychiatric history: depression - Past Surgical History Surgical History: appendectomy, cholecystectomy, colectomy, ureteral stent, other (Tubal ligation) - Social History Smoking Status: Former smoker Smokeless Tobacco Status: No Alcohol use: none Drug use: none - Family History Father Living Status: Hx Family Cardiac Disorders: Yes (afib) Hx Family Respiratory Disorders: No Hx Family Cancer: Yes (prostate) Hx Family GI Disorders: Yes (unknown) Hx Family Genitourinary Disorders: Yes (prostate, ronald) Hx Family Endocrine Disorder: No Hx Family Musculoskeletal Disorders: No Hx Family Neuromuscular Disorders: No Hx Family Neurologic Disorders: Yes (bipolar, a/d) Hx Family HEENT Disorders: No Hx Family Autoimmune Disorders: No Hx Family Reproductive Disorders: No Hx Family Psychosocial Disorders: No Hx Family Medical Disorders: No Mother Living Status: Still Living Hx Family Cardiac Disorders: No Hx Family Respiratory Disorders: No Hx Family Cancer: No Hx Family GI Disorders: No Hx Family Genitourinary Disorders: No Hx Family Endocrine Disorder: No Hx Family Musculoskeletal Disorders: No Hx Family Neuromuscular Disorders: No Hx Family Neurologic Disorders: No Hx Family HEENT Disorders: No Hx Family Autoimmune Disorders: No Hx Family Reproductive Disorders: No Hx Family Psychosocial Disorders: No Hx Family Medical Disorders: No Internal Medicine - H&P: Meds Dicyclomine HCl [Bentyl] 20 mg PO Q4H PRN 06/12/16 [History] Pantoprazole Sodium [Protonix] 40 mg PO DAILY 10/06/17 [History] 3 Allergy/AdvReac Type Severity Reaction Status Date / Time cephalexin [From Keflex] Allergy Rash Verified 03/04/17 13:01 ciprofloxacin [From Cipro] Allergy Rash Verified 03/04/17 13:01 droperidol Allergy "CLIMBING Verified 03/04/17 13:01 SHERMAN" ANXIETY TORE IV OUT WITH TORADOL infliximab [From Remicade] Allergy STOP Verified 03/04/17 13:01 BREATHING metoclopramide [From Reglan] Allergy Hives Verified 03/04/17 13:01 metronidazole [From Flagyl] Allergy Hives Verified 03/04/17 13:01 morphine Allergy IV SITE Verified 03/04/17 13:01 RED STREAK Penicillins Allergy Rash Verified 03/04/17 13:01 sulfamethoxazole Allergy Rash Verified 03/04/17 13:01 [From Bactrim] trimethoprim [From Bactrim] Allergy Rash Verified 03/04/17 13:01 haloperidol [From Haldol] AdvReac CATATONI Verified 03/04/17 13:01 ketorolac [From Toradol] AdvReac "CLIMBING Verified 03/04/17 13:01 SHERMAN" ANXIETY TORE IV OUT WITH DROPERIDOL meperidine [From Demerol] AdvReac Rash Verified 03/04/17 13:01 PPD black rubber mix AdvReac FALSE Verified 03/04/17 13:01 POSITIVE (DR NAVA ALLERGY) All Systems PM: A 10-system review of systems was performed and is negative for pertinent findings except as documented above in the HPI. - Constitutional Vitals: Temp Pulse Resp BP Pulse Ox 99.9 F H 99 16 124/65 106 10/06/17 19:22 10/06/17 19:22 10/06/17 19:22 10/06/17 19:22 10/06/17 19:22 General appearance: Present: mild distress, A&O X 3, answers questions appropriately - Head Head exam: Present: atraumatic, normocephalic - Eye Eye exam: Present: PERRL, conjuntiva pink, sclera anicteric Pupils: Present: PERRL - Neck Neck exam general surgery: Present: supple, trachea midline. Absent: lymphadenopathy - Respiratory Respiratory exam: Present: CTAB. Absent: accessory muscle use, rales, rhonchi, wheezes - Cardiovascular Cardiovascular exam: Present: RRR, +S1, +S2. Absent: diastolic murmur, gallop, rubs, systolic murmur - GI/Abdominal GI/Abdominal exam: Present: hyperactive bowel sounds, normal bowel sounds, soft , tenderness (severe tenderness in 4Q, mainly RLQ, with guarding), no peritoneal signs. Absent: distended - Extremities Exam Extremities exam: Present: warm, radial pulses palpable and symmetrical. Absent : calf tenderness, cyanotic, pedal edema - Neurological Exam Neurological exam: Present: CN II-XII intact, oriented X3, no focal deficits. Absent: pronater drift, facial droop, speech deficit - Skin Skin exam: Present: dry, intact
[2017-10-07] MEDS: OXYCODONE Oral CONC 10 MG/0.5 ML ORAL.SYG SL PRN ×8 (00:41→22:24)
[2017-10-07] MEDS: methylPREDNISolone 125 MG/2 ML VIAL IVP SCH ×2 (00:41→08:07)
[2017-10-07] MEDS: *HR* Promethazine 25 MG/ML VIAL IVP PRN ×4 (00:42→22:24)
[2017-10-07] MEDS: Meropenem 1,000 MG in Water for inj. (sterile) 20 ML 10 ML IVP SCH ×3 (04:04→21:27)
[2017-10-07] MEDS: Ondansetron 4 MG/2 ML VIAL IVP PRN ×2 (04:04→10:17)
[2017-10-07] MEDS: Pantoprazole 40 MG VIAL IVP SCH ×2 (05:21→18:21)
[2017-10-07 06:03] LABS: Basophils % 0.1 %; Hematocrit 33.2 % (35.3-44.9); Hemoglobin 10.5 g/dL (11.5-15.4); Immature Granulocytes % 0.8 % (0-4); Lymphocytes % 6.9 %; Mean Corpuscular HGB Conc 31.6 g/dL (31.6-35.5); Mean Corpuscular Hemoglobin 28.8 pg (28.0-33.3); Mean Corpuscular Volume 91.2 fL (83.0-100.0); Monocytes # 0.3 K/mcL (0.0-1.3); Monocytes % 2.1 %; Neutrophils # 13.4 K/mcL (1.6-8.9); Platelet Count 292 K/mcL (140-400); Red Blood Count 3.64 M/mcL (3.82-4.97); Red Cell Distribution Width 15.9 % (11.5-14.5); Segmented Neutrophils % 90.1 %
[2017-10-07 06:13] LABS: BUN/Creatinine Ratio 15 (6-26); Blood Urea Nitrogen 11 mg/dL (6-20); Calcium 8.5 mg/dL (8.6-10.3); Carbon Dioxide 21 mEq/L (23-29); Chloride 114 mEq/L (98-107); Glucose 108 mg/dL (70-105); Magnesium 1.9 mg/dL (1.6-2.6); Osmolality,Calculated 296 (280-300); Potassium 3.6 mEq/L (3.5-5.1); Sodium 143 mEq/L (136-145); eGFR For African Americans > 60 (> 60); eGFR For Non-African Americans > 60 (> 60)
[2017-10-07] MEDS: 0.9 % Sodium Chloride 1,000 ML IVC SCH (08:05)
--- NOTE | 2017-10-07 13:00 | Internal Med Progress Note ---
Date of Encounter: 10/07/17 Time of Encounter: 12:57 - Assessment and plan (1) Exacerbation of Crohn's disease Current Visit: Yes Status: Acute Assessment and plan: Patient has a history of Crohn's disease and is currently in acute exacerbation. She was at an outside hospital and was sent here for further evaluation. She was nothing by mouth with IV fluids. She was started on IV meropenem. She has multiple antibiotic allergies. She is on Solu-Medrol 60 mg IV every 8 hours. Symptomatic treatment for the abdominal pain and nausea. GI service saw the patient, they plan no intervention at this time. He recommends advancing to a clear liquid diet. I advised patient to take Zofran 20 minutes before she takes by mouth and then trialed the clear liquids. I told if she tolerated it then we would eventually discontinue IV fluids. She is in understanding and verbalized agreement. Qualifiers: Digestive disease complication type: without complication Qualified Code(s) : K50.90 - Crohn's disease, unspecified, without complications (2) Intractable nausea and vomiting Current Visit: No Status: Acute Assessment and plan: Controlled at this time with Zofran Qualifiers: Vomiting type: unspecified Qualified Code(s): R11.2 - Nausea with vomiting , unspecified (3) DVT prophylaxis Current Visit: Yes Status: Acute Assessment and plan: Patient is young and low risk, continue ambulation - Subjective Interval history: Patient is sitting up in the bed. She states that her nausea comes and goes at times. Abdominal pain has been controlled. She stated when she was at the outside hospital she became nauseated after eating anything. Discussed taking Zofran before her meals wait 20 minutes and then try to clear liquids and see how it goes. She is willing to try that. GI was in to see the patient told her he plans no scopes in her diet could be advanced her nothing by mouth to clears. Told her if the clears were.tolerated we could discontinue the IV fluids. She reports a 16 pound weight loss since May. She states she was on no medications before this flare. - Constitutional Vitals: Temp Pulse Resp BP Pulse Ox 99.9 F H 82 15 117/72 97 10/07/17 11:31 10/07/17 11:31 10/07/17 11:31 10/07/17 11:31 03/06/18 11:31 General appearance: Present: cooperative, mild distress, A&O X 3, pleasant, loss of weight, answers questions appropriately - Head Head exam: Present: atraumatic, normocephalic - Eye Eye exam: Present: PERRL, conjuntiva pink, sclera anicteric Pupils: Present: PERRL - Neck Neck exam general surgery: Present: supple, trachea midline. Absent: lymphadenopathy - Respiratory Respiratory exam: Present: CTAB. Absent: accessory muscle use, rales, rhonchi, wheezes - Cardiovascular Cardiovascular exam: Present: RRR, +S1, +S2. Absent: diastolic murmur, gallop, rubs, systolic murmur - GI/Abdominal GI/Abdominal exam: Present: normal bowel sounds, soft, tenderness, no peritoneal signs. Absent: distended, guarding Additional comments: Tender to palpation - Extremities Exam Extremities exam: Present: warm, radial pulses palpable and symmetrical. Absent : calf tenderness, cyanotic, pedal edema - Neurological Exam Neurological exam: Present: CN II-XII intact, oriented X3, no focal deficits, strengths equal and symetr throughout. Absent: pronater drift, facial droop, speech deficit - Skin Skin exam: Present: dry, intact, normal color, warm Internal Medicine: Result - Labs CBC & Chem 7: 10/07/17 05:00 10/07/17 05:00 Labs: Short CBC 10/07/17 Range/Units 05:00 WBC 14.9 H (4.3-11.1) K/mcL Hgb 10.5 L (11.5-15.4) g/dL Hct 33.2 L (35.3-44.9) % Plt Count 292 (140-400) K/mcL Neutrophils # 13.4 H (1.6-8.9) K/mcL BMP 10/07/17 05:00 Sodium 143 Potassium 3.6 Chloride 114 H Carbon Dioxide 21 L BUN 11 Creatinine 0.71 Glucose 108 H Calcium 8.5 L Consult Discharge Plan - Plan Referrals: Bj Garcia MD [Primary Care Provider] -
[2017-10-07] MEDS ORDERED: Ondansetron 4 MG/2 ML VIAL IVP ONE (13:14)
--- NOTE | 2017-10-07 16:09 | Gastroenterology Consult Note ---
<Michael Mendiola - Last Filed: 10/07/17 16:05> Date of Encounter: 10/07/17 Time of Encounter: 12:15 - Assessment and plan (1) Crohn's disease Status: Acute Assessment and plan: Decrease Solu-Medrol to 60mg daily. On discharge, transition to PO steroid taper. Follow up in GI office in 2-3 weeks after discharge. Pt has tried and failed several medications. Qualifiers: Gastrointestinal tract location: unspecified location Digestive disease complication type: with rectal bleeding Qualified Code(s): K50.911 - Crohn's disease, unspecified, with rectal bleeding (2) History of Clostridium difficile infection Status: Acute Assessment and plan: Patient allergic to Flagyl. Consider prophylaxis with vancomycin 250 mg twice a day. - Time Spent With Patient Total time spent is greater than 50% in coordination of care (as documented) at patient's floor/unit and/or counseling patient: GI History of Present Illness - Data of Consult Patient: known to practice within the last 3 years Consult date: 10/07/17 Requesting Physician: Fadia Young CNP - Consult Narrative Reason for consult: Crohn's flare History of present illness: Ms. Dempsey is a 36 year old female with PMHx of C diff colitis and Crohn's disease who presented to [facility] ED with abdominal pain, nausea, vomiting, and bloody diarrhea. C diff test was negative, abdominal XR was unremarkable. She was started on steroids, antibiotics, and pain medication. She was diagnosed with Crohns in 2003. She was on remicade for 2 years but had anaphylactic reaction. She has also been tried on humira and Cimzia which provided some relief for a short time then symptoms worsened again. She has also been on asacol and sulfasalazine with minimal relief in the past. She had colon resection [address] Banegas has seen the patient one time during her last admission in May 2017. She has been scheduled twice to see Dr. Banegas as outpatient, but did not show up for her appointments. She has been started on Solu-Medrol. Procedures: Colonoscopy 05/09/2017 Dr. 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 NSAIDs: None Anticoagulation: None Past Med Surg Social Fam HX - Past Medical History Medical history: kidney stones, other Psychiatric history: depression - Past Surgical History Surgical History: appendectomy, cholecystectomy, colectomy, ureteral stent, other (Tubal ligation) - Social History Smoking Status: Former smoker Smokeless Tobacco Status: No Alcohol use: none Drug use: none - Family History Father Living Status: Hx Family Cardiac Disorders: Yes (afib) Hx Family Respiratory Disorders: No Hx Family Cancer: Yes (prostate) Hx Family GI Disorders: Yes (unknown) Hx Family Genitourinary Disorders: Yes (prostate, ronald) Hx Family Endocrine Disorder: No Hx Family Musculoskeletal Disorders: No Hx Family Neuromuscular Disorders: No Hx Family Neurologic Disorders: Yes (bipolar, a/d) Hx Family HEENT Disorders: No Hx Family Autoimmune Disorders: No Hx Family Reproductive Disorders: No Hx Family Psychosocial Disorders: No Hx Family Medical Disorders: No Mother Living Status: Still Living Hx Family Cardiac Disorders: No Hx Family Respiratory Disorders: No Hx Family Cancer: No Hx Family GI Disorders: No Hx Family Genitourinary Disorders: No Hx Family Endocrine Disorder: No Hx Family Musculoskeletal Disorders: No Hx Family Neuromuscular Disorders: No Hx Family Neurologic Disorders: No Hx Family HEENT Disorders: No Hx Family Autoimmune Disorders: No Hx Family Reproductive Disorders: No Hx Family Psychosocial Disorders: No Hx Family Medical Disorders: No - Gastrointestinal Gastrointestinal: Present: as per HPI - Constitutional Constitutional: as per HPI - EENT Eyes: as per HPI Ears: Present: as per HPI Nose, mouth and throat: Present: as per HPI - Cardiovascular Cardiovascular ROS: Present: as per HPI - Respiratory Respiratory IM: Present: as per HPI - Genitourinary Genitourinary: Absent: change in color, Urinary frequency - Neurological ROS Neurological GI: Present: as per HPI - Hematologic/Lymphatic Hematologic/Lymphatic pediatric: Present: as per HPI - Musculoskeletal Musculoskeletal ROS GI: Present: as per HPI - Integumentary Integumentary GI: Present: as per HPI - Psychiatric ROS Psychiatric GI: Present: as per HPI - Endocrine Endocrine IM: Present: as per HPI - Constitutional Vitals: Temp Pulse Resp BP Pulse Ox 98.5 F 79 15 122/63 100 10/07/17 15:11 10/07/17 15:11 10/07/17 15:11 10/07/17 15:11 10/07/17 15:11 General appearance: Present: cooperative, A&O X 3, no acute distress, answers questions appropriately - Head Head exam: Present: atraumatic, normocephalic - Eye Eye exam: Present: normal appearance, sclera anicteric - ENT ENT exam: Present: mucous membranes moist - Neck Neck exam general surgery: Present: normal inspection, trachea midline - Respiratory Respiratory exam: Present: CTAB. Absent: rales, rhonchi - Cardiovascular Cardiovascular exam: Present: RRR, +S1, +S2 - GI/Abdominal GI/Abdominal exam: Present: soft, tenderness (RUQ, RLQ), no peritoneal signs. Absent: distended, firm, guarding - Rectal Rectal exam: Present: deferred - Extremities Exam Extremities exam: Present: warm - Neurological Exam Neurological exam: Present: no focal deficits - Psychiatric Psychiatric exam: Present: normal affect, normal mood - Skin Skin exam: Present: dry, intact, normal color, warm Results - Labs CBC & Chem 7: 10/07/17 05:00 10/07/17 05:00 Labs: Last Result Calcium 8.5 mg/dL (8.6-10.3) L 10/07/17 05:00 Entire Visit Hgb 10.5 g/dL (11.5-15.4) L 10/07/17 05:00 Hct 33.2 % (35.3-44.9) L 10/07/17 05:00 Consult Discharge Plan - Plan Referrals: Bj Garcia MD [Primary Care Provider] - 10/16/17 10:00 am Prescriptions: Ondansetron HCl [Zofran] 4 mg PO Q8H PRN #14 tablet PRN Reason: Nausea <Jair,Zaire - Last Filed: 10/12/17 15:21> Date of Encounter: 10/07/17 - Time Spent With Patient Total time spent is greater than 50% in coordination of care (as documented) at patient's floor/unit and/or counseling patient: GI History of Present Illness - Data of Consult Requesting Physician: Fadia Young CNP - Consult Narrative History of present illness: Ms. Dempsey is a 36 year old female - Constitutional Vitals: Temp Pulse Resp BP Pulse Ox 98.6 F 70 14 100/52 98 10/10/17 06:54 10/10/17 06:54 10/10/17 06:54 10/10/17 06:54 10/10/17 06:54 Results - Labs CBC & Chem 7: 10/09/17 04:46 03 04:46 Labs: Last Result ESR 1 mm/hr (0-15) 10/08/17 11:09 Calcium 8.6 mg/dL (8.6-10.3) 10/09/17 04:46 C-Reactive Protein < 5 mg/L (Less than 10) 10/08/17 11:09 Stool Occult Blood Positive (Negative) A 10/09/17 14:08 Entire Visit Hgb 10.3 g/dL (11.5-15.4) L 10/09/17 04:46 Hct 32.3 % (35.3-44.9) L 10/09/17 04:46 - Attending Attestation Patient hasCrohn's disease is seen Dr. Banegas the past but has been has has not been very compliant with follow-up. She did well on IV steroids here and I would keep decrease the dose of Solu-Medrol. She remained then switched to oral prednisone and this can be tapered as an outpatient she is to follow up with Dr Banegas as an outpatient and further recommendations can be made after that. She will also need to be on ciprofloxacin and Flagyl I discussed all this with the patient. Thank you for this consultation I have personally performed a face to face evaluation on this patient. I have reviewed and agree with the care plan. History and Exam by me shows:
[2017-10-07] MEDS: Melatonin 3 MG TABLET PO PRN (23:50)
[2017-10-08] MEDS: Ondansetron 4 MG/2 ML VIAL IVP PRN ×3 (02:23→18:30)
[2017-10-08] MEDS: OXYCODONE Oral CONC 10 MG/0.5 ML ORAL.SYG SL PRN ×8 (02:23→23:26)
[2017-10-08] MEDS: *HR* Promethazine 25 MG/ML VIAL IVP PRN ×4 (05:06→23:25)
[2017-10-08] MEDS: Pantoprazole 40 MG VIAL IVP SCH ×2 (05:07→17:10)
[2017-10-08] MEDS: Meropenem 1,000 MG in Water for inj. (sterile) 20 ML 10 ML IVP SCH (05:08)
[2017-10-08 06:44] LABS: Hematocrit 28.6 % (35.3-44.9); Hemoglobin 9.1 g/dL (11.5-15.4); Mean Corpuscular HGB Conc 31.8 g/dL (31.6-35.5); Mean Corpuscular Hemoglobin 29.2 pg (28.0-33.3); Mean Corpuscular Volume 91.7 fL (83.0-100.0); Mean Platelet Volume 10.9 fL (9.4-12.4); Platelet Count 207 K/mcL (140-400); Red Blood Count 3.12 M/mcL (3.82-4.97)
[2017-10-08 08:48] LABS: BUN/Creatinine Ratio 9 (6-26); Blood Urea Nitrogen 6 mg/dL (6-20); Carbon Dioxide 27 mEq/L (23-29); Chloride 110 mEq/L (98-107); Glucose 91 mg/dL (70-105); Osmolality,Calculated 287 (280-300); Potassium 3.3 mEq/L (3.5-5.1); Sodium 140 mEq/L (136-145); eGFR For African Americans > 60 (> 60); eGFR For Non-African Americans > 60 (> 60)
[2017-10-08] MEDS: methylPREDNISolone 125 MG/2 ML VIAL IVP SCH (08:56)
--- NOTE | 2017-10-08 09:28 | Internal Med Progress Note ---
Date of Encounter: 10/08/17 Time of Encounter: 09:23 - Assessment and plan (1) Exacerbation of Crohn's disease Current Visit: Yes Status: Acute Assessment and plan: Patient has a history of Crohn's disease and is currently in acute exacerbation. She was at an outside hospital and was sent here for further evaluation. She was nothing by mouth with IV fluids. She was started on IV meropenem. She has multiple antibiotic allergies. She is on Solu-Medrol 60 mg IV every 8 hours. Symptomatic treatment for the abdominal pain and nausea. GI service saw the patient, they plan no intervention at this time. He recommends advancing to a clear liquid diet. I advised patient to take Zofran 20 minutes before she takes by mouth and then trialed the clear liquids. I told if she tolerated it then we would eventually discontinue IV fluids. She is in understanding and verbalized agreement. Patient had 1 g drop in hemoglobin which is now 9.1. Could be attributed to dilutional secondary to IV fluids that were discontinued yesterday. Patient reports bright red blood and clots in her bowel movements. Checking stool for occult blood as nursing did not report any blood in her stools. Discussed with GI service. Will stop meropenem, continue Solu-Medrol 60 IV daily. We will add vancomycin 250 mg by mouth daily. Will monitor H&H. Mr. Marlena VELÁZQUEZ will speak with the doctor and decide further interventions as needed. Maintain clear liquid diet today. Continue zofran as needed Qualifiers: Digestive disease complication type: without complication Qualified Code(s) : K50.90 - Crohn's disease, unspecified, without complications (2) Intractable nausea and vomiting Current Visit: No Status: Acute Assessment and plan: Continue Zofran Qualifiers: Vomiting type: unspecified Qualified Code(s): R11.2 - Nausea with vomiting , unspecified (3) DVT prophylaxis Current Visit: Yes Status: Acute Assessment and plan: Patient is young and low risk, continue ambulation, scds (4) Hypokalemia due to loss of potassium Current Visit: Yes Status: Acute Assessment and plan: Replace and recheck - Subjective Interval history: Patient is lying in bed. She states she is tolerating her clear liquids. She states she feels about the same. She also reports passing some bright red clots and blood in her stool. Told her I would discuss with GI for further recommendations. She denies fever, chills, dizziness, syncope, vision changes, headache, chest pain or shortness of breath. She does have some abdominal tenderness and intermittent bouts of nausea. - Constitutional Vitals: Temp Pulse Resp BP Pulse Ox 98.4 F 67 18 103/60 98 10/08/17 07:24 10/08/17 07:24 10/08/17 07:24 10/08/17 07:24 10/08/17 07:24 General appearance: Present: cooperative, mild distress, A&O X 3, pleasant, loss of weight, answers questions appropriately - Head Head exam: Present: atraumatic, normocephalic - Eye Eye exam: Present: PERRL, conjuntiva pink, sclera anicteric Pupils: Present: PERRL - Neck Neck exam general surgery: Present: supple, trachea midline. Absent: lymphadenopathy - Respiratory Respiratory exam: Present: CTAB. Absent: accessory muscle use, rales, rhonchi, wheezes - Cardiovascular Cardiovascular exam: Present: RRR, +S1, +S2. Absent: diastolic murmur, gallop, rubs, systolic murmur - GI/Abdominal GI/Abdominal exam: Present: normal bowel sounds, soft, tenderness, no peritoneal signs. Absent: distended, guarding - Extremities Exam Extremities exam: Present: warm, radial pulses palpable and symmetrical. Absent : calf tenderness, cyanotic, pedal edema - Neurological Exam Neurological exam: Present: CN II-XII intact, oriented X3, no focal deficits. Absent: pronater drift, facial droop, speech deficit - Skin Skin exam: Present: dry, intact, normal color, warm Internal Medicine: Result - Labs CBC & Chem 7: 10/08/17 06:31 10/08/17 08:20 Labs: Short CBC 10/08/17 Range/Units 06:31 WBC 7.3 D (4.3-11.1) K/mcL Hgb 9.1 L (11.5-15.4) g/dL Hct 28.6 L (35.3-44.9) % Plt Count 207 (140-400) K/mcL BMP 10/08/17 08:20 Sodium 140 Potassium 3.3 L Chloride 110 H Carbon Dioxide 27 BUN 6 Creatinine 0.67 Glucose 91 Calcium 8.0 L Consult Discharge Plan - Plan Referrals: Bj Garcai MD [Primary Care Provider] -
[2017-10-08] MEDS: Vancomycin Oral Soln 250 MG/5 ML UDC PO SCH (11:08)
[2017-10-08] MEDS ORDERED: SODIUM CHLORIDE/NAHCO3/KCL/PEG 4,000 ML SOLN.RECON PO ONE (17:00)
[2017-10-08] MEDS ORDERED: Polyethylene Glycol 3350 255 GM POWDER PO ONE (17:00)
[2017-10-08] MEDS: Melatonin 3 MG TABLET PO PRN (23:25)
[2017-10-09] MEDS: Ondansetron 4 MG/2 ML VIAL IVP PRN ×3 (02:03→21:20)
[2017-10-09] MEDS: OXYCODONE Oral CONC 10 MG/0.5 ML ORAL.SYG SL PRN ×8 (02:03→23:35)
[2017-10-09] MEDS: Pantoprazole 40 MG VIAL IVP SCH ×2 (05:25→18:05)
[2017-10-09] MEDS: *HR* Promethazine 25 MG/ML VIAL IVP PRN ×4 (05:25→23:34)
[2017-10-09 05:44] LABS: Hematocrit 32.3 % (35.3-44.9); Hemoglobin 10.3 g/dL (11.5-15.4); Mean Corpuscular HGB Conc 31.9 g/dL (31.6-35.5); Mean Platelet Volume 10.8 fL (9.4-12.4); Platelet Count 247 K/mcL (140-400); Red Blood Count 3.55 M/mcL (3.82-4.97); Red Cell Distribution Width 15.2 % (11.5-14.5)
[2017-10-09 06:03] LABS: BUN/Creatinine Ratio 5 (6-26); Blood Urea Nitrogen 3 mg/dL (6-20); Calcium 8.6 mg/dL (8.6-10.3); Carbon Dioxide 26 mEq/L (23-29); Chloride 107 mEq/L (98-107); Glucose 89 mg/dL (70-105); Magnesium 1.9 mg/dL (1.6-2.6); Osmolality,Calculated 284 (280-300); Potassium 3.8 mEq/L (3.5-5.1); Sodium 139 mEq/L (136-145); eGFR For African Americans > 60 (> 60); eGFR For Non-African Americans > 60 (> 60)
[2017-10-09] MEDS: Vancomycin Oral Soln 250 MG/5 ML UDC PO SCH (08:38)
[2017-10-09] MEDS: methylPREDNISolone 125 MG/2 ML VIAL IVP SCH (08:50)
--- NOTE | 2017-10-09 17:09 | Internal Med Progress Note ---
Date of Encounter: 10/09/17 Time of Encounter: 17:07 - Assessment and plan (1) Exacerbation of Crohn's disease Current Visit: Yes Status: Acute Assessment and plan: Patient has a history of Crohn's disease and is currently in acute exacerbation. She was at an outside hospital and was sent here for further evaluation. She was nothing by mouth with IV fluids. She was started on IV meropenem. She has multiple antibiotic allergies. She is on Solu-Medrol 60 mg IV every 8 hours. Symptomatic treatment for the abdominal pain and nausea. GI service saw the patient, they plan no intervention at this time. He recommends advancing to a clear liquid diet. I advised patient to take Zofran 20 minutes before she takes by mouth and then trialed the clear liquids. I told if she tolerated it then we would eventually discontinue IV fluids. She is in understanding and verbalized agreement. Patient had 1 g drop in hemoglobin which is now 9.1. Could be attributed to dilutional secondary to IV fluids that were discontinued yesterday. Patient reports bright red blood and clots in her bowel movements. Checking stool for occult blood as nursing did not report any blood in her stools. Discussed with GI service. Continue Solu-Medrol 60 IV daily. Add vancomycin 250 mg by mouth daily. monitor H&H. Patient for EGD today Advanced from clear liquid diet as per GI service Continue zofran as needed Qualifiers: Digestive disease complication type: without complication Qualified Code(s) : K50.90 - Crohn's disease, unspecified, without complications (2) Intractable nausea and vomiting Current Visit: No Status: Acute Assessment and plan: Continue Zofran PRN Qualifiers: Vomiting type: unspecified Qualified Code(s): R11.2 - Nausea with vomiting , unspecified (3) DVT prophylaxis Current Visit: Yes Status: Acute Assessment and plan: Patient is young, low risk, continue ambulation, scds (4) Hypokalemia due to loss of potassium Current Visit: Yes Status: Acute Assessment and plan: Replaced - Subjective Interval history: Patient is lying in bed. She is awaiting her EGD. She has no complaints at this time. - Constitutional Vitals: Temp Pulse Resp BP Pulse Ox 98.3 F 74 16 105/67 96 10/09/17 15:29 10/09/17 15:29 10/09/17 15:29 10/09/17 15:29 10/09/17 15:29 General appearance: Present: cooperative, A&O X 3, pleasant, loss of weight, answers questions appropriately - Head Head exam: Present: atraumatic, normocephalic - Eye Eye exam: Present: PERRL, conjuntiva pink, sclera anicteric Pupils: Present: PERRL - Neck Neck exam general surgery: Present: supple, trachea midline. Absent: lymphadenopathy - Respiratory Respiratory exam: Present: CTAB. Absent: accessory muscle use, rales, rhonchi, wheezes - Cardiovascular Cardiovascular exam: Present: RRR, +S1, +S2. Absent: diastolic murmur, gallop, rubs, systolic murmur - GI/Abdominal GI/Abdominal exam: Present: normal bowel sounds, soft, no peritoneal signs. Absent: distended, tenderness - Extremities Exam Extremities exam: Present: warm, radial pulses palpable and symmetrical. Absent : calf tenderness, cyanotic, pedal edema - Neurological Exam Neurological exam: Present: CN II-XII intact, oriented X3, no focal deficits. Absent: pronater drift, facial droop, speech deficit - Skin Skin exam: Present: dry, intact, normal color, warm Internal Medicine: Result - Labs CBC & Chem 7: 10/09/17 04:46 10/09/17 04:46 Labs: Short CBC 10/09/17 Range/Units 04:46 WBC 8.7 (4.3-11.1) K/mcL Hgb 10.3 L (11.5-15.4) g/dL Hct 32.3 L (35.3-44.9) % Plt Count 247 (140-400) K/mcL [facility] 10/09/17 04:46 Sodium 139 Potassium 3.8 Chloride 107 Carbon Dioxide 26 BUN 3 L Creatinine 0.57 L Glucose 89 Calcium 8.6 Consult Discharge Plan - Plan Referrals: Bj Garcia MD [Primary Care Provider] - 10/16/17 10:00 am
[2017-10-09] MEDS ORDERED: *HR* Midazolam HCl 5 MG/5 ML VIAL IVP ONE ×3 (17:33→18:13)
[2017-10-09] MEDS ORDERED: *HR* FentaNYL (PF) 100 MCG/2 ML VIAL ONE ×2 (17:34→18:14)
[2017-10-09] MEDS ORDERED: Simethicone 40 MG/0.6 ML MLS IR ONE (17:44)
[2017-10-09] MEDS: *HR* FentaNYL (PF) 100 MCG/2 ML VIAL IVP ONE ×4 (17:46→18:19)
[2017-10-09] MEDS ORDERED: *HR* Promethazine 25 MG/ML VIAL ONE (17:50)
[2017-10-09] MEDS ORDERED: *HR* Promethazine 25 MG/ML VIAL IVP ONE (17:53)
[2017-10-09] MEDS: Melatonin 3 MG TABLET PO PRN (23:34)
[2017-10-10] MEDS: OXYCODONE Oral CONC 10 MG/0.5 ML ORAL.SYG SL PRN ×3 (01:43→08:37)
[2017-10-10] MEDS: Pantoprazole 40 MG VIAL IVP SCH (05:40)
[2017-10-10] MEDS: *HR* Promethazine 25 MG/ML VIAL IVP PRN (05:47)
[2017-10-10 06:57] VITALS: BP 100/52
--- NOTE | 2017-10-10 08:32 | Discharge Summary ---
Orders not resulted at time of discharge: Pending orders 10/08/17 13:08 QuantiFERON-TB Gold In-Tube Routine TPMT Genotyping 4 Variants Routine Date of Encounter: 10/10/17 Time of Encounter: 08:18 - Discharge Diagnosis (1) Exacerbation of Crohn's disease Priority: Primary Status: Acute Comments: colonoscopy completed, spoke with GI service S/P colonscopy: The entire examined colon is normal, stricture at the colonic anastomosis was dilated. The exam portion of the ileum was normal Follow-up GI outpatient Resume regular diet Qualifiers: Digestive disease complication type: without complication Qualified Code(s) : K50.90 - Crohn's disease, unspecified, without complications (2) Intractable nausea and vomiting Priority: Primary Status: Resolved Comments: resolved, tolerating diet Qualifiers: Vomiting type: unspecified Qualified Code(s): R11.2 - Nausea with vomiting , unspecified (3) Hypokalemia due to loss of potassium Priority: Primary Status: Resolved Comments: resolved (4) Drug-seeking behavior Priority: Primary Status: Chronic Comments: Nursing reports that patient wants her pain medicine every time it is due to even though this on a when necessary status. She was yelling at staff last night and that she expected her medicine in a timely manner. Hospital course: Ms. Dempsey is a 36 year old female Discharge discussed with: patient, nurse, political consultant - Time Spent with Patient Total time spent providing and/or coordinating discharge services: Less than 30 minutes - Discharge Medications Prescriptions: Ondansetron HCl [Zofran] 4 mg PO Q8H PRN #14 tablet PRN Reason: Nausea Home Medications: Dicyclomine HCl [Bentyl] 20 mg PO Q4H PRN 06/12/16 [History] Pantoprazole Sodium [Protonix] 40 mg PO DAILY 10/06/17 [History] Ondansetron HCl [Zofran] 4 mg PO Q8H PRN #14 tablet 10/10/17 [Rx] Allergies/Adverse Reactions: 3 Allergy/AdvReac Type Severity Reaction Status Date / Time cephalexin [From Keflex] Allergy Rash Verified 03/04/17 13:01 ciprofloxacin [From Cipro] Allergy Rash Verified 03/04/17 13:01 droperidol Allergy "CLIMBING Verified 03/04/17 13:01 SHERMAN" ANXIETY TORE IV OUT WITH TORADOL infliximab [From Remicade] Allergy STOP Verified 03/04/17 13:01 BREATHING metoclopramide [From Reglan] Allergy Hives Verified 03/04/17 13:01 metronidazole [From Flagyl] Allergy Hives Verified 03/04/17 13:01 morphine Allergy IV SITE Verified 03/04/17 13:01 RED STREAK Penicillins Allergy Rash Verified 03/04/17 13:01 sulfamethoxazole Allergy Rash Verified 03/04/17 13:01 [From Bactrim] trimethoprim [From Bactrim] Allergy Rash Verified 03/04/17 13:01 haloperidol [From Haldol] AdvReac CATATONI Verified 03/04/17 13:01 ketorolac [From Toradol] AdvReac "CLIMBING Verified 03/04/17 13:01 SHERMAN" ANXIETY TORE IV OUT WITH DROPERIDOL meperidine [From Demerol] AdvReac Rash Verified 03/04/17 13:01 PPD black rubber mix AdvReac FALSE Verified 03/04/17 13:01 POSITIVE (DR NAVA ALLERGY) Date of admission: 10/06/17 18:42 Primary care physician: Bj Garcia MD Consults: 10/06/17 21:01 Consult to Gastroenterology [CONS] Routine Consulting Provider: Gastroenterology Lizette Reason for Consult: Crohn's flare Call Completed: Yes 10/07/17 08:40 Consult to Gastroenterology [CONS] Routine Consulting Provider: Gastroenterology Lizette Reason for Consult: chrones flare Time Notified: 08:40 Call Completed: Yes Discharging clinician: Ирина Gonzalez Anticipated date of discharge: 10/10/17 - Constitutional Vitals: Temp Pulse Resp BP Pulse Ox 98.6 F 70 14 100/52 98 10/10/17 06:54 10/10/17 06:54 10/10/17 06:54 10/10/17 06:54 10/10/17 06:54 General appearance: Present: cooperative, A&O X 3, pleasant, loss of weight, answers questions appropriately - Head Head exam: Present: atraumatic, normocephalic - Eye Eye exam: Present: PERRL, conjuntiva pink, sclera anicteric Pupils: Present: PERRL - Neck Neck exam general surgery: Present: supple, trachea midline. Absent: lymphadenopathy - Respiratory Respiratory exam: Present: CTAB. Absent: accessory muscle use, rales, rhonchi, wheezes - Cardiovascular Cardiovascular exam: Present: RRR, +S1, +S2. Absent: diastolic murmur, gallop, rubs, systolic murmur - GI/Abdominal GI/Abdominal exam: Present: normal bowel sounds, soft, no peritoneal signs. Absent: distended, tenderness - Extremities Exam Extremities exam: Present: warm, radial pulses palpable and symmetrical. Absent : calf tenderness, cyanotic, pedal edema - Neurological Exam Neurological exam: Present: CN II-XII intact, oriented X3, no focal deficits. Absent: pronater drift, facial droop, speech deficit - Skin Skin exam: Present: dry, intact, normal color, warm - Patient Status Disposition: Home, Self-Care Overall status at discharge: patient is progressing back to baseline - Discharge Instructions Follow Up With: Bj Garcia MD [Primary Care Provider] - 10/16/17 10:00 am - Diet and Activity Activity: resume usual activities as tolerated Diet: advance to your usual diet - VTE Documentation of Mechanical Device: Intermittent pneumatic compression device
[2017-10-10] MEDS: Vancomycin Oral Soln 250 MG/5 ML UDC PO SCH (08:37)
[2017-10-10] MEDS: methylPREDNISolone 125 MG/2 ML VIAL IVP SCH (08:38)
[2017-10-10] MEDS: Ondansetron 4 MG/2 ML VIAL IVP PRN (08:38)
[2017-10-12 21:17] LABS: Thiopurine Methy Genotyp NEG/NEG; Thiopurine Methyl Gen Specimen WHOLE BLOOD
[2017-10-13 08:24] LABS: QuantiFERON NIL 0.04 IU/mL; QuantiFERON-TB Gold In-Tube NEGATIVE (Negative)
[2017-10-13 08:47] LABS: TPMT Predicted Phenotype NORMAL
== END 2017-10-10 10:30 | disposition home or self-care (01) ==
LOC: 3BNU → 1NENUPED 10-07 15:04 → 3ANU 10-07 23:24
PROVIDERS: ADMIT Nurse Practitioner Family; ATTEND Registered Nurse
PROC: ENDOCBD (2017-10-09 17:30)

== ENCOUNTER 2018-02-11 12:58 | Observation (INO) ==
[2018-02-11] MEDS ORDERED: Acetaminophen 325 MG TABLET PO PRN (15:37)
[2018-02-11] MEDS ORDERED: Naloxone 0.4 MG/ML INJ IVP PRN (15:37)
[2018-02-11] MEDS ORDERED: Isovue-370 500 ML INFUS..BTL IV ONE (15:39)
[2018-02-11 15:45] VITALS: BP 121/78
[2018-02-11] MEDS ORDERED: Acetaminophen IV 500 MG/50 ML INFUS..BTL IVPB ONE (16:00)
[2018-02-11] MEDS ORDERED: Ondansetron 4 MG/2 ML VIAL IVP PRN (16:00)
[2018-02-11] MEDS ORDERED: 0.9 % Sodium Chloride 1,000 ML IVC SCH (16:15)
--- NOTE | 2018-02-11 16:44 | Internal Med History&Physical ---
Date of Encounter: 02/11/18 Time of Encounter: 16:32 Internal Medicine - H&P: HPI Chief complaint: " My crohn's is acting up" Admitted From: Hospital to Hospital Transfer Plans for Post Hospital Care: Home History of present illness: Ms. Dempsey is a 37 year old female with medical history of Crohn's disease, multiple surgeries in the past. She was recently discharged in October 2017 after being admitted for flare of Crohn's disease, and also noted at that time as in previous admissions to be drug-seeking. She is transferred from an outside facility after presenting there with complaints of fever and abdominal pain. She also reports associated bloody stools. At my time of evaluation, patient reports she has gone she has had 4 bloody bowel movements unwitnessed. She was managed with Phenergan, Solu-Medrol , saline, and was transferred to this facility on request by the patient after complaining that she was not getting adequate pain control at the referring facility. On my evaluation, patient is calm not in any form of distress, denies any chest , respiratory, neurologic or genitourinary symptoms. Workup at outside facility showed chemistry within normal limit mild hypokalemia with potassium 3.3, BUN/creatinine normal CBC within normal limits liver function tests unremarkable abdomen CT showed mild colitis. The patient will be placed on observation for Crohn's flare, no evidence of sepsis, gastroenterology will be consulted. Past Med Surg Social Fam HX - Past Medical History Medical history: kidney stones, other Additional medical history: anemia, hypopatremia, crohns Psychiatric history: depression - Past Surgical History Surgical History: appendectomy, cholecystectomy, colectomy, ureteral stent, other Additional surgical history: 3 c sections, knee sx, tubal - Social History Smoking Status: Current every day smoker Packs per day: fourth of a pack per day Smokeless Tobacco Status: No Alcohol use: none Drug use: none - Family History Father Living Status: Hx Family Cardiac Disorders: Yes (afib) Hx Family Respiratory Disorders: No Hx Family Cancer: Yes (prostate) Hx Family GI Disorders: Yes (unknown) Hx Family Endocrine Disorder: No Hx Family Neuromuscular Disorders: No Hx Family Neurologic Disorders: Yes (bipolar, a/d) Hx Family HEENT Disorders: No Hx Family Autoimmune Disorders: No Mother Living Status: Still Living Hx Family Cardiac Disorders: No Hx Family Respiratory Disorders: No Hx Family Cancer: No Hx Family GI Disorders: No Hx Family Endocrine Disorder: No Hx Family Neuromuscular Disorders: No Hx Family Neurologic Disorders: No Hx Family HEENT Disorders: No Hx Family Autoimmune Disorders: No Internal Medicine - H&P: Meds Dicyclomine HCl [Bentyl] 20 mg PO Q4H PRN 06/12/16 [History] Pantoprazole Sodium [Protonix] 40 mg PO DAILY 10/06/17 [History] Ondansetron HCl [Zofran] 4 mg PO Q8H PRN #14 tablet 10/10/17 [Rx] 3 Allergy/AdvReac Type Severity Reaction Status Date / Time cephalexin [From Keflex] Allergy Rash Verified 03/04/17 13:01 ciprofloxacin [From Cipro] Allergy Rash Verified 03/04/17 13:01 droperidol Allergy "CLIMBING Verified 03/04/17 13:01 SHERMAN" ANXIETY TORE IV OUT WITH TORADOL infliximab [From Remicade] Allergy STOP Verified 03/04/17 13:01 BREATHING metoclopramide [From Reglan] Allergy Hives Verified 03/04/17 13:01 metronidazole [From Flagyl] Allergy Hives Verified 03/04/17 13:01 morphine Allergy IV SITE Verified 03/04/17 13:01 RED STREAK Penicillins Allergy Rash Verified 03/04/17 13:01 sulfamethoxazole Allergy Rash Verified 03/04/17 13:01 [From Bactrim] trimethoprim [From Bactrim] Allergy Rash Verified 03/04/17 13:01 haloperidol [From Haldol] AdvReac CATATONI Verified 03/04/17 13:01 ketorolac [From Toradol] AdvReac "CLIMBING Verified 03/04/17 13:01 SHERMAN" ANXIETY TORE IV OUT WITH DROPERIDOL meperidine [From Demerol] AdvReac Rash Verified 03/04/17 13:01 PPD black rubber mix AdvReac FALSE Verified 03/04/17 13:01 POSITIVE (DR NAVA ALLERGY) All Systems PM: A 10-system review of systems was performed and is negative for pertinent findings except as documented above in the HPI. - Constitutional Constitutional: as per HPI - EENT Eyes: as per HPI Ears: as per HPI Nose, mouth and throat: as per HPI - Cardiovascular Cardiovascular ROS IM: as per HPI - Respiratory Respiratory: as per HPI - Gastrointestinal Gastrointestinal: as per HPI - Genitourinary Genitourinary: as per HPI - Musculoskeletal Musculoskeletal ROS IM: as per HPI - Integumentary Integumentary IM: as per HPI - Neurological Neurological ROS: as per HPI - Hematologic/Lymphatic Hematologic/Lymphatic: as per HPI - Constitutional Vitals: Temp Pulse Resp BP Pulse Ox 98.8 F 67 16 121/78 97 02/11/18 15:45 02/11/18 15:45 02/11/18 15:45 02/11/18 15:45 02/11/18 15:45 General appearance: Present: A&O X 3, pleasant, no acute distress - Head Head exam: Present: atraumatic, normocephalic Additional comments: poor dentition - Eye Eye exam: Present: PERRL, conjuntiva pink, sclera anicteric Pupils: Present: PERRL - Neck Neck exam general surgery: Present: supple, trachea midline. Absent: lymphadenopathy - Respiratory Respiratory exam: Present: CTAB. Absent: accessory muscle use, rales, rhonchi, wheezes - Cardiovascular Cardiovascular exam: Present: RRR, +S1, +S2. Absent: diastolic murmur, gallop, rubs, systolic murmur - GI/Abdominal GI/Abdominal exam: Present: tenderness (vageu generalized tenderness, no guarding, abdomen is soft) - Extremities Exam Extremities exam: Present: warm, radial pulses palpable and symmetrical. Absent : calf tenderness, cyanotic, pedal edema - Neurological Exam Neurological exam: Present: alert, CN II-XII intact, oriented X3, no focal deficits. Absent: pronater drift, facial droop, speech deficit - Skin Skin exam: Present: dry, intact - Assessment and plan (1) DVT prophylaxis Current Visit: Yes Status: Acute Assessment and plan: Ambulate (2) Exacerbation of Crohn's disease Current Visit: Yes Status: Acute Assessment and plan: continue solumedrol Abd and pelvis CT ordered Hold antibiotics for now Qualifiers: Digestive disease complication type: without complication Qualified Code(s) : K50.90 - Crohn's disease, unspecified, without complications (3) Drug-seeking behavior Current Visit: Yes Status: Acute Assessment and plan: REVIEW shows patient received 100 pills of hydrocodone acetaminophen on February 05 from outside facility. She had earlier refused acetaminophen and requesting dilaudid Paperwork from outside facility also showed same behaviour-which made patient request to be transferred IV tylenol given, SL oxycodone prn, follow CT scan to assess severity if symptoms - Time Spent With Patient Total time spent is greater than 50% in coordination of care (as documented) at patient's floor/unit and/or counseling patient:
== END 2018-02-11 17:34 | disposition left against medical advice (07) ==
LOC: 3BNU
PROVIDERS: ADMIT Internal Medicine; ATTEND Internal Medicine